=== PATIENT | male | born 1955 | race Caucasian/White ===

== ENCOUNTER 2017-04-12 16:56 | Inpatient (IN) | payer MEDICARE, MEDICAID ==
[~2017-04-12] VITALS: Ht 182.9 cm; Wt 83.8 kg
[~2017-04-12 16:56] MED LIST: DICL75 PO; MMW SSP; PENI500T PO; VENTAER INH; [UNRECOGNIZED DRUG - REMARK] PO
[2017-04-12 17:07] VITALS: BP 168/87; PULSE 81; RESP 13; TEMP 97.7; O2SAT 99
--- NOTE | 2017-04-12 18:08 | PD ---
HPI Chief Complaint: Alcohol/Drug Intoxication Time Seen by Provider: 17:50 Travel History International Travel<30 days: No Contact w/Intl Traveler<30days: No Traveled to known affect area: No History of Present Illness HPI 62-year-old male presents to the emergency department by E KIERA intoxicated after a fall that occurred today. Patient states that she was at home when EVAC just 'showed up'. When asked questions of the patient he just laughs and does not directly answer my questions. States he has drank a large quantity of alcohol today. PFSH Past Medical History Asthma: No Autoimmune Disease: No Heart Rhythm Problems: Yes Cardiovascular Problems: Yes (Per patient, heart palpitations) Chest Pain: No Congestive Heart Failure: No COPD: No Cerebrovascular Accident: No Diabetes: Yes Patient Takes Glucophage: No Diminished Hearing: No Endocrine: No Genitourinary: No Hypertension: Yes Immune Disorder: No Implanted Vascular Access Dvce: No Kidney Stones: Yes Musculoskeletal: No Neurologic: No Psychiatric: Yes (Inpatient, outpatient, diagnosis, and psychotropic medications) Respiratory: Yes (ASTHMA) Migraines: No Seizures: Yes (Per patient, due to psych medication Haldol (1985) 1 time) Sickle Cell Disease: No Sleep Apnea: No Thyroid Disease: No Ulcer: No Influenza Vaccination: No Past Surgical History Surgical History: Unable to Obtain Abdominal Surgery: No AICD: No Arteriovenous Shunt: No Cardiac Surgery: No Ear Surgery: No Endocrine Surgery: No Eye Surgery: No Genitourinary Surgery: No Gynecologic Surgery: No Insulin Pump: No Joint Replacement: No Neurologic Surgery: No Oral Surgery: No Pacemaker: No Thoracic Surgery: No Other Surgery: Yes (lympomas removed) Social History Alcohol Use: Yes (2- 8 BEERS/DAY) Tobacco Use: No Substance Use: Yes Allergies-Medications (Allergen,Severity, Reaction): Coded Allergies: haloperidol (Unverified Adverse Reaction, Severe, Swelling, 11/23/16) swelling of the tongue as reported by patient and un-wittnessed. Reported Meds & Prescriptions Reported Meds & Active Scripts Active Pen Vk (Penicillin V Potassium) 500 Mg Tab 500 Mg PO QID Ventolin Hfa (Albuterol Sulfate) 18 Gm Aero 2 Puff INH Q4-6H PRN * SHAKE WELL BEFORE USE * Magic Mouthwash-Diphenhy Formula (Lidocaine/Diphenhydr/Alum/Mg/Simeth) Ml 5-10 Ml SSP 5 TIMES A DAY PRN MAGIC MOUTHWASH CONTAINS 1/3 VISCOUS LIDOCAINE, 1/3 MAALOX, AND 1/[address] (Diclofenac Sod) 75 Mg Tab 75 Mg PO BID PRN Reported [Otc Sleeping Aid] 11 Tab PO HS Review of Systems Except as stated in HPI: all other systems reviewed are Neg Physical Exam Narrative GENERAL: Well-nourished and distress SKIN: Focused skin assessment warm/dry. HEAD: Normocephalic. Large, 6 cm hematoma with central puncta with copious bleeding EYES: Pupils equal and round. No scleral icterus. No injection or drainage. ENT: No nasal bleeding or discharge. Mucous membranes pink and moist. NECK: Trachea midline. No JVD. CARDIOVASCULAR: Regular rate and rhythm. No murmur appreciated. RESPIRATORY: No accessory muscle use. Clear to auscultation. Breath sounds equal bilaterally. GASTROINTESTINAL: Abdomen soft, non-tender, nondistended. Hepatic and splenic margins not palpable. Left flank with ecchymosis under several abrasions with a distinct pattern (shoe?) MUSCULOSKELETAL: No obvious deformities. No clubbing. No cyanosis. No edema. NEUROLOGICAL: Awake and alert. No obvious cranial nerve deficits. Motor grossly within normal limits. Normal speech. PSYCHIATRIC: Appropriate mood, unusual affect Data Data Last Documented VS Vital Signs Date Time Temp Pulse Resp B/P (MAP) Pulse Ox O2 Delivery O2 Flow Rate FiO2 04/12/17 21:00 84 14 122/79 (93) 99 Room Air 04/12/17 17:[address] Brain W/O Iv Contrast(Rout) (04/12/17 ) Ct Cerv Spine W/O Contrast (04/12/17 ) Complete Blood Count With Diff (04/12/17 19:18) Comprehensive Metabolic Panel (04/12/17 19:18) Alcohol (Ethanol) (04/12/17 19:18) Act Partial Throm Time (Ptt) (04/12/17 19:18) Prothrombin Time / Inr (Pt) (04/12/17 19:18) Ct Abd/Pel W Iv Contrast(Rout) (04/12/17 ) Consult Neurosurgery (04/12/17 ) (Hub Use Only)Inp Phy Cons/Ref (1/2/18 ) Iohexol 350 Inj (Omnipaque 350 Inj) (04/12/17 21:18) Admit Order (Ed Use Only) (04/12/17 21:53) Labs Laboratory Tests Test 04/12/17 20:25 White Blood Count 5.7 TH/MM3 Red Blood Count 5.02 MIL/MM3 Hemoglobin 16.5 GM/DL Hematocrit 47.9 % Mean Corpuscular Volume 95.4 FL Mean Corpuscular Hemoglobin 32.8 PG Mean Corpuscular Hemoglobin Concent 34.3 % Red Cell Distribution Width 12.4 % Platelet Count 226 TH/MM3 Mean Platelet Volume 7.7 FL Neutrophils (%) (Auto) 52.3 % Lymphocytes (%) (Auto) 35.7 % Monocytes (%) (Auto) 9.9 % Eosinophils (%) (Auto) 1.4 % Basophils (%) (Auto) 0.7 % Neutrophils # (Auto) 3.0 TH/MM3 Lymphocytes # (Auto) 2.0 TH/MM3 Monocytes # (Auto) 0.6 TH/MM3 Eosinophils # (Auto) 0.1 TH/MM3 Basophils # (Auto) 0.0 TH/MM3 CBC Comment DIFF FINAL Differential Comment Prothrombin Time 11.6 SEC Prothromb Time International Ratio 1.1 RATIO Activated Partial Thromboplast Time 26.3 SEC Blood Urea Nitrogen 7 MG/DL Creatinine 0.87 MG/DL Random Glucose 261 MG/DL Total Protein 7.7 GM/DL Albumin 4.1 GM/DL Calcium Level 9.3 MG/DL Alkaline Phosphatase 92 U/L Aspartate Amino Transf (AST/SGOT) 31 U/L Alanine Aminotransferase (ALT/SGPT) 34 U/L Total Bilirubin 0.4 MG/DL Sodium Level 138 MEQ/L Potassium Level 4.2 MEQ/L Chloride Level 101 MEQ/L Carbon Dioxide Level 29.3 MEQ/L Anion Gap 8 MEQ/L Estimat Glomerular Filtration Rate 89 ML/MIN Ethyl Alcohol Level 318 MG/DL MDM Medical Decision Making Medical Screen Exam Complete: Yes Emergency Medical Condition: Yes Differential Diagnosis Subarachnoid hemorrhage, laceration of the head, TBI, concussion, a call intoxication Narrative Course 62-year-old male presents to the emergency department by E VAC intoxicated after a fall that occurred today. Patient states that she was at home when EVAC just 'showed up'. When asked questions of the patient he just laughs and does not directly answer my questions. States he has drank a large quantity of alcohol today. Denies any other ingestions. Vital signs stable. Physical exam findings consistent with a large hematoma to the left posterior aspect of the head with a small laceration with copious bleeding. 3 denise placed which controlled the bleeding well. Pressure dressing applied. Laboratory Tests Test 04/12/17 20:25 White Blood Count 5.7 TH/MM3 Red Blood Count 5.02 MIL/MM3 Hemoglobin 16.5 GM/DL Hematocrit 47.9 % Mean Corpuscular Volume 95.4 FL Mean Corpuscular Hemoglobin 32.8 PG Mean Corpuscular Hemoglobin Concent 34.3 % Red Cell Distribution Width 12.4 % Platelet Count 226 TH/MM3 Mean Platelet Volume 7.7 FL Neutrophils (%) (Auto) 52.3 % Lymphocytes (%) (Auto) 35.7 % Monocytes (%) (Auto) 9.9 % Eosinophils (%) (Auto) 1.4 % Basophils (%) (Auto) 0.7 % Neutrophils # (Auto) 3.0 TH/MM3 Lymphocytes # (Auto) 2.0 TH/MM3 Monocytes # (Auto) 0.6 TH/MM3 Eosinophils # (Auto) 0.1 TH/MM3 Basophils # (Auto) 0.0 TH/MM3 CBC Comment DIFF FINAL Differential Comment Prothrombin Time 11.6 SEC Prothromb Time International Ratio 1.1 RATIO Activated Partial Thromboplast Time 26.3 SEC Blood Urea Nitrogen 7 MG/DL Creatinine 0.87 MG/DL Random Glucose 261 MG/DL Total Protein 7.7 GM/DL Albumin 4.1 GM/DL Calcium Level 9.3 MG/DL Alkaline Phosphatase 92 U/L Aspartate Amino Transf (AST/SGOT) 31 U/L Alanine Aminotransferase (ALT/SGPT) 34 U/L Total Bilirubin 0.4 MG/DL Sodium Level 138 MEQ/L Potassium Level 4.2 MEQ/L Chloride Level 101 MEQ/L Carbon Dioxide Level 29.3 MEQ/L Anion Gap 8 MEQ/L Estimat Glomerular Filtration Rate 89 ML/MIN Ethyl Alcohol Level 318 MG/DL A CT abdomen and pelvis was ordered as well as during the secondary survey, we found an ecchymosis developing with a distinct pattern on the left flank area. Abdominal exam remained unremarkable however. 2129 Upon reassessment, patient found to be alert and oriented 3. He still can 't tell me how EVAC arrived to his house but he does understand the instructions that have given him. I explained to him that he does have a bleed in his brain he requires admission. Patient does not have any complaints at this time. Please see Dr. Bender's note as well regarding this patient. Dr. Bender spoke with Dr. Vital and states he should be admitted to ICU. Thank you Dr. Downing for taking this patient. Procedures Procedure Narrative LACERATION LOCATION: Left posterior scalp LENGTH: 1 mm NUMBER OF STITCHES/DENISE: 3 denise REPAIR: The area of the laceration was prepped with Betadine and sterilely draped. The laceration was not infiltrated as this wound was copiously bleeding. The wound was closed using 3 denise. This was a - layer repair. A sterile dressing was applied. The patient was advised to keep the dressing clean and dry. Patient tolerated the procedure well. Diagnosis Primary Impression: Laceration of head Qualified Codes: S01.01XA - Laceration without foreign body of scalp, initial encounter Additional Impressions: Traumatic brain injury Qualified Codes: S06.9X0A - Unspecified intracranial injury without loss of consciousness, initial encounter Alcohol intoxication Qualified Codes: F10.920 - Alcohol use, unspecified with intoxication, uncomplicated Abdominal wall contusion Qualified Codes: S30.1XXA - Contusion of abdominal wall, initial encounter Admitting Information Admitting Physician Requests: Admit Scripts Metformin (Metformin) 500 Mg Tab 500 MG PO BIDPC for Blood Sugar Management, #60 TAB 0 Refills Prov: Nora Valdez MD 04/13/17 Chlordiazepoxide HCl (Chlordiazepoxide HCl) 25 Mg Capsule 25 MG PO BID for alcohol withdrawls, #10 MG Prov: Nora Valdez MD 04/13/17 Thiamine HCl (Gnp Vitamin B-1) 100 Mg Tab 100 MG PO DAILY for Nutritional Supplement, #30 TAB Prov: Nora Valdez MD 04/13/17 Folic Acid (Folic Acid) 1 Mg Tablet 1 MG PO DAILY for Nutritional Supplement, #30 MG Prov: Nora Valdez MD 04/13/17 Condition: Stable Margie Hernandez Apr 12, 2017 18:08
--- NOTE | 2017-04-12 18:32 | RADRPT ---
EXAM DATE/TIME: 04/12/2017 18:09 [facility] COMPARISON: No previous studies available for comparison. INDICATIONS : Trauma, patient fell. ETOH RADIATION DOSE: 37.33 CTDIvol (mGy) MEDICAL HISTORY : Seizures. Cardiovascular disease Hypertension.diabetic SURGICAL HISTORY : None. ENCOUNTER: Initial ACUITY: 1 day PAIN SCALE: 0/10 LOCATION: cranial TECHNIQUE: Multiple contiguous axial images were obtained of the head. Using automated exposure control and adj ustment of the mA and/or kV according to patient size, radiation dose was kept as low as reasonably a chievable to obtain optimal diagnostic quality images. DICOM format image data is available electro nically for review and comparison. FINDINGS: CEREBRUM: Minimal subarachnoid hemorrhage left parietal lobe. The ventricles are normal for age. No evidence o f midline shift, mass lesion or acute infarction. POSTERIOR FOSSA: The cerebellum and brainstem are intact. The 4th ventricle is midline. The cerebellopontine angle i s unremarkable. EXTRACRANIAL: The visualized portion of the orbits is intact. SKULL: The calvaria is intact. No evidence of skull fracture. Left parietal scalp hematoma. CONCLUSION: 1. Minimal subarachnoid hemorrhage left parietal lobe. 2. Left parietal scalp hematoma. Augie Go MD on April 12, 2017 at 18:28 Board Certified Radiologist. This report was verified electronically.
--- NOTE | 2017-04-12 18:38 | RADRPT ---
EXAM DATE/TIME: 04/12/2017 18:09 [facility] COMPARISON: No previous studies available for comparison. INDICATIONS : Trauma, patient fell. ETOH RADIATION DOSE: 21.60 CTDIvol (mGy) MEDICAL HISTORY : Seizures. Cardiovascular disease Hypertension.diabetic SURGICAL HISTORY : None. ENCOUNTER: Initial ACUITY: 1 day PAIN SCALE: 0/10 LOCATION: neck TECHNIQUE: Volumetric scanning of the cervical spine was performed. Multiplanar reconstructions in the sagittal, coronal and oblique axial planes were performed. Using automated exposure control and adjustment o f the mA and/or kV according to patient size, radiation dose was kept as low as reasonably achievable to obtain optimal diagnostic quality images. DICOM format image data is available electronically f or review and comparison. FINDINGS: VERTEBRAE: Normal vertebral body height. No fracture. Advanced multilevel degenerative changes. Prominent cystic change left pedicle left C3 could be nerves sheath tumor. This does appear to involve the adjacent n erve root. Similar findings are seen along the the left neural foramen at C5-1 small soft tissue mass . ALIGNMENT: No evidence of subluxation. C2-C3: The bony spinal canal is normal in size. No evidence of disc bulge or herniation. The neural forami na are bilaterally patent. C3-C4: The bony spinal canal is normal in size. No evidence of disc bulge or herniation. The neural forami na are bilaterally patent. C4-C5: Right-sided posterior disc osteophyte complex abuts the thecal sac. No canal stenosis. Mild neural fo raminal narrowing bilaterally. C5-C6: Posterior disc osteophyte complex abuts the thecal sac without canal stenosis. The neural foramina ar e bilaterally patent. C6-C7: Posterior disc osteophyte complex abuts thecal sac without canal stenosis. The neural foramina are b ilaterally patent. C7-T1: The bony spinal canal is normal in size. No evidence of disc bulge or herniation. The neural forami na are bilaterally patent. CONCLUSION: 1. No fracture or subluxation. 2. Advanced multilevel degenerative changes. 3. 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 Augie Go MD on April 12, 2017 at 18:30 Board Certified Radiologist. This report was verified electronically.
[2017-04-12 19:00] VITALS: BP 126/86; PULSE 79; RESP 14; O2SAT 99
--- NOTE | 2017-04-12 19:00 | PD ---
Physical Exam Narrative I, Dr. Bender, have reviewed the advance practice practitioner's documentation and am in agreement, met with the patient face to face, made the diagnosis, and the medical decision making was done by me. *My assessment and Findings: Alcohol intoxication vs. ICH vs. fracture 62yo M with alcohol intoxication. Pt is awake and answering questions but clinically very intoxicated. No focal neurologic deficits on exam. CT cspine showed no fracture. 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 CT brain showed minimal subarachnoid hemorrhage left parietal lobe. Left parietal scalp hematoma. Laceration repaired by my PA. Discussed with Dr. Vital who recommends to have ice guard inspector admit if I feel pt needs to go to ICU. Pt is intoxicated and follows commands but laughing and AAOx2. Pt has abrasions in left flank region that appears new so will add on CT a/p+ with labs. Pt to be admitted to ICU for neurochecks and repeat CT brain. Data Data Last Documented VS Vital Signs Date Time Temp Pulse Resp B/P (MAP) Pulse Ox O2 Delivery O2 Flow Rate FiO2 04/12/17 21:00 84 14 122/79 (93) 99 Room Air 04/12/17 17:[address] Brain W/O Iv Contrast(Rout) (04/12/17 ) Ct Cerv Spine W/O Contrast (04/12/17 ) Complete Blood Count With Diff (04/12/17 19:18) Comprehensive Metabolic Panel (04/12/17 19:18) Alcohol (Ethanol) (04/12/17 19:18) Act Partial Throm Time (Ptt) (04/12/17 19:18) Prothrombin Time / Inr (Pt) (04/12/17 19:18) Ct Abd/Pel W Iv Contrast(Rout) (04/12/17 ) Consult Neurosurgery (04/12/17 ) (Hub Use Only)Inp Phy Cons/Ref (04/12/17 ) Iohexol 350 Inj (Omnipaque 350 Inj) (04/12/17 21:18) Admit Order (Ed Use Only) (04/12/17 21:53) Labs Laboratory Tests Test 04/12/17 20:25 White Blood Count 5.7 TH/MM3 Red Blood Count 5.02 MIL/MM3 Hemoglobin 16.5 GM/DL Hematocrit 47.9 % Mean Corpuscular Volume 95.4 FL Mean Corpuscular Hemoglobin 32.8 PG Mean Corpuscular Hemoglobin Concent 34.3 % Red Cell Distribution Width 12.4 % Platelet Count 226 TH/MM3 Mean Platelet Volume 7.7 FL Neutrophils (%) (Auto) 52.3 % Lymphocytes (%) (Auto) 35.7 % Monocytes (%) (Auto) 9.9 % Eosinophils (%) (Auto) 1.4 % Basophils (%) (Auto) 0.7 % Neutrophils # (Auto) 3.0 TH/MM3 Lymphocytes # (Auto) 2.0 TH/MM3 Monocytes # (Auto) 0.6 TH/MM3 Eosinophils # (Auto) 0.1 TH/MM3 Basophils # (Auto) 0.0 TH/MM3 CBC Comment DIFF FINAL Differential Comment Prothrombin Time 11.6 SEC Prothromb Time International Ratio 1.1 RATIO Activated Partial Thromboplast Time 26.3 SEC Blood Urea Nitrogen 7 MG/DL Creatinine 0.87 MG/DL Random Glucose 261 MG/DL Total Protein 7.7 GM/DL Albumin 4.1 GM/DL Calcium Level 9.3 MG/DL Alkaline Phosphatase 92 U/L Aspartate Amino Transf (AST/SGOT) 31 U/L Alanine Aminotransferase (ALT/SGPT) 34 U/L Total Bilirubin 0.4 MG/DL Sodium Level 138 MEQ/L Potassium Level 4.2 MEQ/L Chloride Level 101 MEQ/L Carbon Dioxide Level 29.3 MEQ/L Anion Gap 8 MEQ/L Estimat Glomerular Filtration Rate 89 ML/MIN Ethyl Alcohol Level 318 MG/DL MDM Supervised Visit with KATIA: Yes Critical Care Narrative Aggregate critical care time was 35 minutes. Time to perform other separately billable procedures was not included in the critical care time. My time did not include minutes spent treating any other patients simultaneously or on activities that did not directly contribute to the patient's treatment. The services I provided to this patient were to treat and/or prevent clinically significant deterioration that could results in: cardiovascular collapse or . I provided critical care services requiring my management, as noted below: Chart data review, documentation time, medication orders and management, vital sign assessments/reviewing monitor data, ordering and reviewing lab tests, ordering and interpreting/reviewing x- rays and diagnostic studies, care of the patient and discussion of the patient with the admitting physicians. Diagnosis Primary Impression: Subarachnoid hemorrhage Admitting Information Admitting Physician Requests: Admit Scripts Metformin (Metformin) 500 Mg Tab 500 MG PO BIDPC for Blood Sugar Management, #60 TAB 0 Refills Prov: Nora Valdez MD 04/13/17 Chlordiazepoxide HCl (Chlordiazepoxide HCl) 25 Mg Capsule 25 MG PO BID for alcohol withdrawls, #10 MG Prov: Nora Valdez MD 04/13/17 Thiamine HCl (Gnp Vitamin B-1) 100 Mg Tab 100 MG PO DAILY for Nutritional Supplement, #30 TAB Prov: Nora Valdez MD 04/13/17 Folic Acid (Folic Acid) 1 Mg Tablet 1 MG PO DAILY for Nutritional Supplement, #30 MG Prov: Nora Valdez MD 04/13/17 Condition: Stable Brenda Bender DO Apr 12, 2017 19:00
[2017-04-12 20:42] LABS: BASOPHIL % 0.7 % (0.0-2.0); EOSINOPHIL # 0.1 TH/MM3 (0-0.4); EOSINOPHIL % 1.4 % (0.0-4.0); HEMATOCRIT 47.9 % (39.0-51.0); HEMOGLOBIN 16.5 GM/DL (13.0-17.0); LYMPH % 35.7 % (9.0-44.0); MEAN CELL VOLUME 95.4 FL (80.0-100.0); MEAN CORPUSCULAR HEMOGLOBIN 32.8 PG (27.0-34.0); MEAN CORPUSCULAR HGB CONC 34.3 % (32.0-36.0); MEAN PLATELET VOLUME 7.7 FL (7.0-11.0); MONO % 9.9 % (0.0-8.0); MONOCYTE # 0.6 TH/MM3 (0-0.9); NEUT % 52.3 % (16.0-70.0); PLATELET COUNT 226 TH/MM3 (150-450); RED BLOOD COUNT 5.02 MIL/MM3 (4.50-5.90); RED CELL DISTRIBUTION WIDTH 12.4 % (11.6-17.2); WHITE BLOOD COUNT 5.7 TH/MM3 (4.0-11.0)
[2017-04-12 20:55] LABS: ALBUMIN 4.1 GM/DL (3.4-5.0); AST (GOT) 31 U/L (15-37); BICARBONATE 29.3 MEQ/L (21.0-32.0); BLOOD UREA NITROGEN 7 MG/DL (7-18); CALCIUM 9.3 MG/DL (8.5-10.1); CHLORIDE 101 MEQ/L (98-107); CREATININE 0.87 MG/DL (0.60-1.30); GLOMERULAR FILTRATION RATE 89 ML/MIN (>89); GLUCOSE,RANDOM 261 MG/DL (74-106); SODIUM (NA) 138 MEQ/L (136-145)
[2017-04-12 20:56] LABS: ALT (GPT) 34 U/L (12-78)
[2017-04-12 21:00] VITALS: BP 122/79; PULSE 84; RESP 14; O2SAT 99
[2017-04-12 21:02] LABS: ALKALINE PHOSPHATASE 92 U/L (45-117); INTERNATIONAL NORMALIZED RATIO 1.1 RATIO; PROTHROMBIN TIME - PATIENT 11.6 SEC (9.8-11.6); TOTAL BILIRUBIN ADULT 0.4 MG/DL (0.2-1.0); TOTAL PROTEIN 7.7 GM/DL (6.4-8.2)
[2017-04-12] MEDS ORDERED: IOHEXOL 350 MG/ML 10 ML VIAL (for RAD DIAG) IVCONTRAST ONE (21:18)
--- NOTE | 2017-04-12 21:31 | RADRPT ---
EXAM DATE/TIME: 04/12/2017 21:14 [facility] COMPARISON: No previous studies available for comparison. INDICATIONS : Left side abdomen abrasions from fall. IV CONTRAST: 95 cc Omnipaque 350 (iohexol) IV ORAL CONTRAST: No oral contrast ingested. RADIATION DOSE: 7.20 CTDIvol (mGy) MEDICAL HISTORY : Cardiovascular disease. Renal calculi. SURGICAL HISTORY : None. ENCOUNTER: Initial ACUITY: 1 day PAIN SCALE: 7/10 LOCATION: Left abdomen. TECHNIQUE: Volumetric scanning of the abdomen and pelvis was performed. Using automated exposure control and ad justment of the mA and/or kV according to patient size, radiation dose was kept as low as reasonably achievable to obtain optimal diagnostic quality images. DICOM format image data is available electro nically for review and comparison. FINDINGS: LOWER LUNGS: The visualized lower lungs are clear. LIVER: Homogeneous density without lesion. There is no dilation of the biliary tree. No calcified gallston es. SPLEEN: Normal size without lesion. PANCREAS: Within normal limits. KIDNEYS: Normal in size and shape. There is no mass, stone or hydronephrosis. ADRENAL GLANDS: Within normal limits. VASCULAR: There is no aortic aneurysm. BOWEL/MESENTERY: The stomach, small bowel, and colon demonstrate no acute abnormality. There is no free intraperitone al air or fluid. ABDOMINAL WALL: Within normal limits. RETROPERITONEUM: There is no lymphadenopathy. BLADDER: No wall thickening. Mass at the base of the bladder appears to be related to hypertrophied prostate g land. REPRODUCTIVE: Within normal limits. INGUINAL: There is no lymphadenopathy or hernia. MUSCULOSKELETAL: Within normal limits for patient age. CONCLUSION: 1. No acute abdominal visceral injury. 2. Enlarged prostate gland protrudes into the base of the bladder versus less likely mass. Augie Go MD on April 12, 2017 at 21:26 Board Certified Radiologist. This report was verified electronically.
--- NOTE | 2017-04-12 22:24 | HHI.HP ---
HPI Service Critical Care Medicine Primary Care Physician Unknown Admission Diagnosis SAH, head trauma Diagnosis: Travel History International Travel<30 Days: No Contact w/Intl Traveler <30 Da: No Traveled to Known Affected Are: No History of Present Illness 62-year-old male with past medical history of hypertension, palpitations, diabetes. He states he has not been on his meds "for a while". He presents to [facility] emergency department due to altered mental status after a fall that occurred earlier in the day. [facility] transported him. He had a scalp laceration that has undergone staple repair in the emergency department. CT brain demonstrated a small subarachnoid hemorrhage high left parietal region. CT cspine was negative for acute injury, ?nerve sheath tumors per radiology report. CT abdomen and pelvis was negative or traumatic injury. Prostate was enlarged vs less likely bladder mass. He was intoxicated with alcohol level of 318. Neurosurgery was consulted and Dr. Vital recommended follow up CT brain in a.m. with admission to critical care medicine. Patient is alert, protecting his airway. Review of Systems Constitutional: DENIES: Fever Eyes: DENIES: Blurred vision, Diplopia Respiratory: DENIES: Cough, Sputum production, Shortness of breath Cardiovascular: DENIES: Chest pain Gastrointestinal: DENIES: Abdominal pain, Black stools, Vomiting Musculoskeletal: COMPLAINS OF: Back pain (chronic), DENIES: Joint pain Neurologic: COMPLAINS OF: Headache Psychiatric: DENIES: Agitation, Suicidal Ideation Past Family Social History Allergies: Coded Allergies: haloperidol (Unverified Adverse Reaction, Severe, Swelling, 11/23/16) swelling of the tongue as reported by patient and un-wittnessed. Past Medical History Palpitations Diabetes Hypertension Asthma Alcohol dependence Kidney stones Past Surgical History Lipomas removed from his right shoulder 2 Reported Medications None patient states he was previously on medications for diabetes and hypertension but is no longer taking any meds. Family History Father lived to age 98 and patient is not aware of any medical issues Mother lived to age 85 and patient is not aware of any medical issues. Social History Drinks 2-8 beers per day Patient states he doesn't smoke Denies illicit drug use to me. States he has not homeless, lives in an apartment. Physical Exam Vital Signs Vital Signs Date Time Temp Pulse Resp B/P (MAP) Pulse Ox O2 Delivery O2 Flow Rate FiO2 04/12/17 17:36 Room Air 04/12/17 17:07 97.7 81 13 168/87 (225) 99 Physical Exam GENERAL: Intoxicated male who is laying in bed very pleasant, laughing frequently while answering questions. SKIN: Warm and dry. There is an abrasion over left lower flank and to right of thoracolumbar spine. No midline tenderness step-off or deformity.. HEAD: Atraumatic. Normocephalic. EYES: Pupils equal and round. No scleral icterus. No injection or drainage. ENT: No nasal bleeding or discharge. Mucous membranes pink and moist. NECK: Trachea midline. No JVD. CARDIOVASCULAR: Regular rate and rhythm. No murmurs rubs or gallops. RESPIRATORY: No accessory muscle use. Clear to auscultation. Breath sounds equal bilaterally. On room air GASTROINTESTINAL: Abdomen soft, non-tender, nondistended. Bowel sounds present. MUSCULOSKELETAL: Extremities without clubbing, cyanosis, or edema. No obvious deformities. NEUROLOGICAL: Awake and alert. . Motor grossly within normal limits. Normal speech. Laboratory Laboratory Tests Test 04/12/17 20:25 White Blood Count 5.7 Red Blood Count 5.02 Hemoglobin 16.5 Hematocrit 47.9 Mean Corpuscular Volume 95.4 Mean Corpuscular Hemoglobin 32.8 Mean Corpuscular Hemoglobin Concent 34.3 Red Cell Distribution Width 12.4 Platelet Count 226 Mean Platelet Volume 7.7 Neutrophils (%) (Auto) 52.3 Lymphocytes (%) (Auto) 35.7 Monocytes (%) (Auto) 9.9 Eosinophils (%) (Auto) 1.4 Basophils (%) (Auto) 0.7 Neutrophils # (Auto) 3.0 Lymphocytes # (Auto) 2.0 Monocytes # (Auto) 0.6 Eosinophils # (Auto) 0.1 Basophils # (Auto) 0.0 CBC Comment DIFF FINAL Differential Comment Prothrombin Time 11.6 Prothromb Time International Ratio 1.1 Activated Partial Thromboplast Time 26.3 Blood Urea Nitrogen 7 Creatinine 0.87 Random Glucose 261 Total Protein 7.7 Albumin 4.1 Calcium Level 9.3 Alkaline Phosphatase 92 Aspartate Amino Transf (AST/SGOT) 31 Alanine Aminotransferase (ALT/SGPT) 34 Total Bilirubin 0.4 Sodium Level 138 Potassium Level 4.2 Chloride Level 101 Carbon Dioxide Level 29.3 Anion Gap 8 Estimat Glomerular Filtration Rate 89 Ethyl Alcohol Level 318 Result Diagram: 04/12/17202404/12/172024 Caprini VTE Risk Assessment Caprini VTE Risk Assessment: Mod/High Risk (score >= 2) VTE Pharm Contraindication: Intracranial lesions Caprini Risk Assessment Model Point Value = 1 Point Value = 2 Point Value = 3 Point Value = 5 Age 41-60 Minor surgery BMI > 25 kg/m2 Swollen legs Varicose veins or History of unexplained or recurrent spontaneous Oral contraceptives or hormone replacement Sepsis (< 1 month) Serious lung disease, including pneumonia (< 1 month) Abnormal pulmonary function Acute myocardial infarction Congestive heart failure (< 1 month) History of inflammatory bowel disease Medical patient at bed rest Age 61-74 Arthroscopic surgery Major open surgery (> 45 min) Laparoscopic surgery (> 45 min) Malignancy Confined to bed (> 72 hours) Immobilizing plaster cast Central venous access Age >= 75 History of VTE Family history of VTE Factor V Leiden Prothrombin [id number] Lupus anticoagulant Anticardiolipin antibodies Elevated serum homocysteine Heparin-induced thrombocytopenia Other congenital or acquired thrombophilia Stroke (< 1 month) Elective arthroplasty Hip, pelvis, or leg fracture Acute spinal cord injury (< 1 month) Prophylaxis Regimen Total Risk Factor Score Risk Level Prophylaxis Regimen 0-1 Low Early ambulation 2 Moderate Order ONE of the following: *Sequential Compression Device (SCD) *Heparin 5000 units SQ BID 3-4 Higher Order ONE of the following medications: *Heparin 5000 units SQ TID *Enoxaparin/Lovenox 40 mg SQ daily (WT < 150 kg, CrCl > 30 mL/min) *Enoxaparin/Lovenox 30 mg SQ daily (WT < 150 kg, CrCl > 10-29 mL/min) *Enoxaparin/Lovenox 30 mg SQ BID (WT < 150 kg, CrCl > 30 mL/min) AND/OR *Sequential Compression Device (SCD) 5 or more Highest Order ONE of the following medications: *Heparin 5000 units SQ TID (Preferred with Epidurals) *Enoxaparin/Lovenox 40 mg SQ daily (WT < 150 kg, CrCl > 30 mL/min) *Enoxaparin/Lovenox 30 mg SQ daily (WT < 150 kg, CrCl > 10-29 mL/min) *Enoxaparin/Lovenox 30 mg SQ BID (WT < 150 kg, CrCl > 30 mL/min) AND *Sequential Compression Device (SCD) Assessment and Plan Assessment and Plan NEURO: Acute alcohol intoxication - etOH 318 Traumatic left parietal subarachnoid hemorrhage Left parietal scalp hematoma Fall Scalp laceration status post staple repair 04/12/17 in the ED. Staple removal in 7 days Admit to [facility] with neurochecks q1hr. Repeat CT in a.m. Monitor for signs and symptoms of alcohol withdrawal Neurosurgery consulted, Dr. Vital RESP: History of asthma On room air Albuterol every 2 hours as needed CV: Hypertension Off meds GI: 2000-calorie ADA diet FEN/RENAL: History of kidney stone Normal creatinine. Monitor electrolytes and replace as indicated CT abdomen and pelvis with enlarged prostate protruding into the base of the bladder versus less likely mass. Outpatient urology follow-up ID: No leukocytosis or fever. Monitor for signs and symptoms of infection. HEME: Monitor CBC ENDO: Diabetes mellitus Monitor bedside glucose and give medium dose insulin sliding scale as indicated. PROPH: SCDs for DVT prophylaxis. Avoid pharmacologic DVT prophylaxis due to Traumatic subarachnoid hemorrhage. Could be started within [address] and neuro exam stable and ok with NSG. Famotidine for stress ulcer prophylaxis. ACCESS: Peripheral IV providing adequate access at this time. Level III H&P Tonia Downing MD Apr 12, 2017 22:24
[2017-04-12 23:00] VITALS: BP 118/77; PULSE 77; RESP 14; O2SAT 100
--- NOTE | 2017-04-12 23:59 | PD.CONS ---
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 No definite loss of consciousness reported. No seizure activity or emesis reported. Patient with EtOH level of 318. Review of Systems Constitutional: DENIES: Dizziness Eyes: DENIES: Blurred vision, Diplopia Ears, nose, mouth, throat: DENIES: Hearing loss, Vertigo Respiratory: DENIES: Shortness of breath Cardiovascular: DENIES: Chest pain, Palpitations Gastrointestinal: DENIES: Abdominal pain, Nausea Musculoskeletal: COMPLAINS OF: Muscle aches, DENIES: Joint pain Hematologic/lymphatic: DENIES: Bruising Neurologic: COMPLAINS OF: Headache, DENIES: Abnormal gait Psychiatric: COMPLAINS OF: Confusion, Mood changes Past Family Social History Allergies: Coded Allergies: haloperidol (Unverified Adverse Reaction, Severe, Swelling, 11/23/16) swelling of the tongue as reported by patient and un-wittnessed. Past Medical History Hypertension Diabetes Asthma Past Surgical History Lipoma shoulder removal Reported Medications Reported Meds & Active Scripts Active Pen Vk (Penicillin V Potassium) 500 Mg Tab 500 Mg PO QID Ventolin Hfa (Albuterol Sulfate) 18 Gm Aero 2 Puff INH Q4-6H PRN * SHAKE WELL BEFORE USE * Magic Mouthwash-Diphenhy Formula (Lidocaine/Diphenhydr/Alum/Mg/Simeth) Ml 5-10 Ml SSP 5 TIMES A DAY PRN MAGIC MOUTHWASH CONTAINS 1/3 VISCOUS LIDOCAINE, 1/3 MAALOX, AND 1/3 BENADRYL. Diclofenac Sodium 75 Mg Tab 75 Mg PO BID PRN Reported [Otc Sleeping Aid] 11 Tab PO HS Family History Negative cardiac disease, cancer, diabetes Social History Drinks approximately a sixpack of beer per day No cigarette use Physical Exam Vital Signs Vital Signs Date Time Temp Pulse Resp B/P (MAP) Pulse Ox O2 Delivery O2 Flow Rate FiO2 04/12/17 17:36 Room Air 04/12/17 17:07 97.7 81 13 168/87 (114) 99 Physical Exam GENERAL: This is a well-nourished, well-developed patient, laughing constantly , inappropriate behavior, anxious. SKIN: No abrasions, contusion, rash noted. Skin warm and dry. HEAD: Moderate scalp abrasion EYES: Sclerae are clear and nonicteric ENT: No facial edema or ecchymosis. No periorbital edema. No CSF otorrhea or rhinorrhea. No palpable facial fracture or deformity. NECK: Trachea midline. No cervical spine tenderness. CARDIOVASCULAR: Regular rate and rhythm without murmurs, gallops, or rubs. RESPIRATORY: Clear to auscultation. Breath sounds equal bilaterally. No wheezes , rales, or rhonchi. GASTROINTESTINAL: Abdomen soft, non-tender, nondistended. No hepato-splenomegaly , or palpable masses. No guarding. MUSCULOSKELETAL: Extremities without cyanosis, or edema. No joint tenderness, or edema noted. No calf tenderness. Dorsalis pedis pulses 2+ bilateral NEUROLOGICAL: Awake and alert Speech is clear He exhibits significant inappropriate behavior. Constantly laughing. Follow simple commands well Answers some simple questions appropriately Significant diminished judgment and insight Recent and remote memory are somewhat difficult to fully assessed given his inappropriate behavior but appears significantly diminished Appears somewhat anxious Pupils are equal and reactive to accommodation. Extra-ocular movements, visual perla to confrontation, facial sensorimotor, tongue, palate, sternocleidomastoid testing, hearing to finger rub testing, and bilateral shoulder shrug are all intact. Sensation is intact to light touch in all extremities Strength normal major flexion and extension groups all extremities Miguel's absent bilaterally No ankle clonus Plantar responses absent bilateral Fine motor movements intact upper extremities Laboratory Laboratory Tests Test 04/12/17 20:25 White Blood Count 5.7 Red Blood Count 5.02 Hemoglobin 16.5 Hematocrit 47.9 Mean Corpuscular Volume 95.4 Mean Corpuscular Hemoglobin 32.8 Mean Corpuscular Hemoglobin Concent 34.3 Red Cell Distribution Width 12.4 Platelet Count 226 Mean Platelet Volume 7.7 Neutrophils (%) (Auto) 52.3 Lymphocytes (%) (Auto) 35.7 Monocytes (%) (Auto) 9.9 Eosinophils (%) (Auto) 1.4 Basophils (%) (Auto) 0.7 Neutrophils # (Auto) 3.0 Lymphocytes # (Auto) 2.0 Monocytes # (Auto) 0.6 Eosinophils # (Auto) 0.1 Basophils # (Auto) 0.0 CBC Comment DIFF FINAL Differential Comment Prothrombin Time 11.6 Prothromb Time International Ratio 1.1 Activated Partial Thromboplast Time 26.3 Blood Urea Nitrogen 7 Creatinine 0.87 Random Glucose 261 Total Protein 7.7 Albumin 4.1 Calcium Level 9.3 Alkaline Phosphatase 92 Aspartate Amino Transf (AST/SGOT) 31 Alanine Aminotransferase (ALT/SGPT) 34 Total Bilirubin 0.4 Sodium Level 138 Potassium Level 4.2 Chloride Level 101 Carbon Dioxide Level 29.3 Anion Gap 8 Estimat Glomerular Filtration Rate 89 Ethyl Alcohol Level 318 Result Diagram: 04/12/17202404/12/1720[address] scan head, cervical spine, spine bone windows on abdomen and pelvis CT images reviewed by the undersigned Very mild left parietal convexity subarachnoid hemorrhage with overlying left scalp hematoma. No skull fracture pneumocephalus or hydrocephalus noted. Head CT 04/12/17 0000 Signed Impressions: Service Date/Time: Wednesday, April 12, 2017 18:09 - CONCLUSION: 1. Minimal subarachnoid hemorrhage left parietal lobe. 2. Left parietal scalp hematoma. Augie Go MD Cervical Spine CT 04/12/17 0000 Signed Impressions: Service Date/Time: Wednesday, April 12, 2017 18:09 - CONCLUSION: 1. No fracture or subluxation. 2. Advanced multilevel degenerative changes. 3. 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 Augie Go MD Abdomen/Pelvis CT 04/12/17 0000 Signed Impressions: Service Date/Time: Wednesday, April 12, 2017 21:14 - CONCLUSION: 1. No acute abdominal visceral injury. 2. Enlarged prostate gland protrudes into the base of the bladder versus less likely mass. Augie Go MD Assessment and Plan Assessment and Plan Impression: 1. Mild traumatic brain injury with subarachnoid hemorrhage left parietal convexity. 2. Left parietal scalp contusion Recommendations: Patient admitted to intensive surgical care unit for close vital signs and neuro checks. Non-chemical DVT prophylaxis No seizure prophylaxis necessary at this point Ulcer prophylaxis Follow-up CT scan head in the a.m. 04/13/2017 Marco Vital MD Apr 12, 2017 23:59
[2017-04-13] VITALS (8 sets, daily range): BP systolic 124–155; BP diastolic 78–87; PULSE 80–97; RESP 14–20; TEMP 98.1–98.3; O2SAT 95–100
[2017-04-13] MEDS ORDERED: SODIUM PHOSPHATE INJ 30 MMOL in SODIUM CHLOR 0.9% 250 ML INJ 240 ML IV PRN ×2
[2017-04-13] MEDS ORDERED: POTASSIUM PHOSPHATE MONOBASIC 500 MG TAB PO PRN
[2017-04-13] MEDS ORDERED: MAGNESIUM OXIDE 400 MG TAB PO PRN
[2017-04-13] MEDS ORDERED: ONDANSETRON HCL 4 MG/2 ML VIAL IV PUSH PRN
[2017-04-13] MEDS ORDERED: MISCELLANEOUS NURSING INFORMATION XX SCH
[2017-04-13] MEDS ORDERED: SENNOSIDES 8.6 MG TAB PO PRN
[2017-04-13] MEDS ORDERED: ACETAMINOPHEN/HYDROcodone 325 MG/5 MG TAB PO PRN
[2017-04-13] MEDS ORDERED: MAGNESIUM SULFATE INJ 4 GM in SODIUM CHLORIDE 0.9% INJ 92 ML IV PRN ×2
[2017-04-13] MEDS ORDERED: BISACODYL 10 MG SUPP RECTAL PRN
[2017-04-13] MEDS ORDERED: POTASSIUM CHLOR 40 MEQ PREMIX 100 ML IV PRN ×2
[2017-04-13] MEDS ORDERED: DEXTROSE 50% IN WATER 50 ML VIAL(D50) IV PUSH PRN
[2017-04-13] MEDS ORDERED: POTASSIUM PHOSPHATE MONOBASIC 500 MG TAB PO/TUBE PRN
[2017-04-13] MEDS ORDERED: POTASSIUM CHLORIDE 25 MEQ EFFERVESCENT TAB PO PRN
[2017-04-13] MEDS ORDERED: POTASSIUM PHOSPHATE INJ 30 MMOL in SODIUM CHLOR 0.9% 250 ML INJ 250 ML IV PRN ×2
[2017-04-13] MEDS ORDERED: MAGNESIUM SULFATE INJ 2 GM in SODIUM CHLORIDE 0.9% INJ 96 ML IV PRN ×2
[2017-04-13] MEDS ORDERED: MAGNESIUM HYDROXIDE SUSP 30 ML CUP PO PRN
[2017-04-13] MEDS ORDERED: POTASSIUM CHLOR 20 MEQ PREMIX 100 ML IV PRN ×2
[2017-04-13] MEDS ORDERED: LACTULOSE SYRUP 20 GM/30 ML CUP PO PRN
[2017-04-13] MEDS ORDERED: RESP: ALBUTEROL 2.5 MG/3 ML NEB (PRN) INH
[2017-04-13] MEDS ORDERED: GLUCAGON 1 MG/ML VIAL OTHER PRN
[2017-04-13] MEDS ORDERED: CHLORHEXIDINE GLUCONATE 2 % 1 PACK (2 CLOTHS) TOP PRN
[2017-04-13] MEDS ORDERED: SODIUM CHLORIDE 0.9% FLUSH 10 ML FLUSH IV FLUSH PRN
[2017-04-13] MEDS ORDERED: ACETAMINOPHEN 325 MG TAB PO PRN
--- NOTE | 2017-04-13 02:59 | RADRPT ---
EXAM DATE/TIME: 04/13/2017 02:49 [place] COMPARISON: CT BRAIN W/O CONTRAST, April 12, 2017, 18:09. INDICATIONS : Follow up subarachnoid hemorrhage. RADIATION DOSE: 35.21 CTDIvol (mGy) MEDICAL HISTORY : Seizures. Cardiovascular disease Hypertension.diabetic SURGICAL HISTORY : None. ENCOUNTER: Initial ACUITY: 2 days PAIN SCALE: 0/10 LOCATION: cranial TECHNIQUE: Multiple contiguous axial images were obtained of the head. Using automated exposure control and adj ustment of the mA and/or kV according to patient size, radiation dose was kept as low as reasonably a chievable to obtain optimal diagnostic quality images. DICOM format image data is available electro nically for review and comparison. FINDINGS: Subtle high attenuation change involving the sulcal pattern adjacent to the falx involving the pariet al lobe on the left. This is stable. No large volume hemorrhage observe. No new hemorrhage. No intrap arenchymal or intraventricular hemorrhage. No subdural hematoma. A left posterior soft tissue hematom a again seen. Ventricles are normal in size. Calvarium is intact. CONCLUSION: Subtle small volume subarachnoid hemorrhage is stable. No new hemorrhage observed. Caleb Casarez Jr., MD on April 13, 2017 at 2:55 Board Certified Radiologist. This report was verified electronically.
[2017-04-13] MEDS ORDERED: CHLORHEXIDINE GLUCONATE 2 % 1 PACK (2 CLOTHS) TOP SCH (04:00)
[2017-04-13 05:20] LABS: AUTOMATED NEUTROPHIL # 5.1 TH/MM3 (1.8-7.7); BASOPHIL % 0.6 % (0.0-2.0); EOSINOPHIL % 0.4 % (0.0-4.0); HEMATOCRIT 47.3 % (39.0-51.0); HEMOGLOBIN 16.5 GM/DL (13.0-17.0); LYMPHOCYTE # 1.5 TH/MM3 (1.0-4.8); MEAN CELL VOLUME 94.6 FL (80.0-100.0); MEAN CORPUSCULAR HGB CONC 34.9 % (32.0-36.0); MEAN PLATELET VOLUME 8.2 FL (7.0-11.0); MONO % 10.5 % (0.0-8.0); MONOCYTE # 0.8 TH/MM3 (0-0.9); NEUT % 68.5 % (16.0-70.0); PLATELET COUNT 233 TH/MM3 (150-450); RED CELL DISTRIBUTION WIDTH 12.6 % (11.6-17.2); WHITE BLOOD COUNT 7.4 TH/MM3 (4.0-11.0)
[2017-04-13 05:28] LABS: BICARBONATE 24.9 MEQ/L (21.0-32.0); CREATININE 0.79 MG/DL (0.60-1.30)
[2017-04-13] MEDS: INSULIN ASPART SUPPLEMENTAL SCALE SQ SCH ×2 (07:58→11:51)
--- NOTE | 2017-04-13 08:53 | HHI.CCPN ---
Subjective Remarks/Hospital Course 62-year-old male with past medical history of hypertension, palpitations, diabetes. He states he has not been on his meds "for a while". He presents to [facility] emergency department due to altered mental status after a fall that occurred earlier in the day. [facility] transported him. He had a scalp laceration that has undergone staple repair in the emergency department. CT brain demonstrated a small subarachnoid hemorrhage high left parietal region. CT cspine was negative for acute injury, ?nerve sheath tumors per radiology report. CT abdomen and pelvis was negative or traumatic injury. Prostate was enlarged vs less likely bladder mass. He was intoxicated with alcohol level of 318. Neurosurgery was consulted and Dr. Vital recommended follow up CT brain in a.m. with admission to critical care medicine. Patient is alert, protecting his airway. SUBJ 04/13/17: Lying in bed, nonfocal neuro exam. Tremulous. Drinks about 12 beers daily. CIWA protocol initiated along with Thiamine and folic acid replacement. repeat CT head stable Objective Vital Signs Date Time Temp Pulse Resp B/P (MAP) Pulse Ox O2 Delivery O2 Flow Rate FiO2 04/13/17 08:00 90 04/13/17 07:00 Room Air 04/13/17 06:00 20 140/79 (99) 98 04/13/17 04:00 98.1 Intake and Output 04/13/17 04/13/17 04/14/17 08:00 16:00 00:00 Intake Total 240 ml Output Total 400 ml Balance -160 ml Result Diagram: 04/13/17 0412 04/13/17 0412 Objective Remarks GENERAL: male who is laying in bed pleasant, but tremulous SKIN: Warm and dry. There is an abrasion HEAD: Atraumatic. Normocephalic. EYES: Pupils equal and round. No scleral icterus. No injection or drainage. ENT: No nasal bleeding or discharge. Mucous membranes pink and moist. NECK: Trachea midline. No JVD. CARDIOVASCULAR: Regular rate and rhythm. No murmurs rubs or gallops. RESPIRATORY: Clear to auscultation. Breath sounds equal bilaterally. GASTROINTESTINAL: Abdomen soft, non-tender, nondistended. Hepatic and splenic margins not palpable. MUSCULOSKELETAL: Extremities without clubbing, cyanosis, or edema. No obvious deformities. NEUROLOGICAL: Awake and alert. No obvious cranial nerve deficits. Motor grossly within normal limits. Tremulous from early alcohol withdrawal A/P Assessment and Plan NEURO: Mild with subarachnoid hemorrhage left parietal convexity. Left parietal scalp contusion Alcohol intoxication, now with early alcohol withdrawal - Repeat CT of the head stable hemorrhage - Initiate CIWA protocol, start scheduled Librium 25 mg by mouth every 8 hours - Supplement multivitamin thiamine and folic acid - Seizure precautions RESP: - Nasal cannula oxygen if needed - Aggressive pulmonary toilet - DuoNeb every 6 hours when necessary CV: - Normal saline IV fluids 84 ml per hour GI: ADA Diet, famotidine : - Monitor renal function closely. ID: - Monitor closely for infection HEME: - Monitor CBC, CMP ENDO: Type 2 diabetes with hyperglycemia - Continue sliding scale insulin (patient refusing SSI) PROPH: - Bilateral lower extremity SCDs. Avoid chemical DVT prophylaxis LINES: - Utilize peripheral IVs, central line if needed Level 2 Transfer to with Tele. [facility] tyo assume care 04/14/17 Rigo Pierce MD Apr 13, 2017 08:53
--- NOTE | 2017-04-13 08:56 | HHI.NSPN ---
(Ho Jarquin) History Interval History 04/12: 62-year-old male presented by a VAC to the ambulance today after a fall earlier in the day. No definite loss of consciousness reported. No seizure activity or emesis reported. Patient with EtOH level of 318. 04/13: (Ho Jarquin) Exam Results 04/11/17 04/11/17 04/12/17 04/12/17 04/13/17 04/13/17 05:59 17:59 05:59 17:59 05:59 17:59 Intake Total 240 ml Output Total 400 ml Balance -160 ml Intake Oral 240 ml Output Urine Total 400 ml # Bowel Movements 0 Vital Signs Date Time Temp Pulse Resp B/P (MAP) Pulse Ox O2 Delivery O2 Flow Rate FiO2 04/13/17 08:00 90 04/13/17 07:00 Room Air 04/13/17 06:00 Room Air 04/13/17 06:00 97 20 140/79 (99) 98 04/13/17 05:00 85 20 142/82 (102) 97 04/13/17 04:00 98.1 87 20 139/86 (103) 98 04/13/17 04:00 Room Air 04/13/17 03:05 04/13/17 01:00 80 14 124/78 (93) 100 Room Air 04/13/17 00:21 96 04/12/17 23:00 77 14 118/77 (91) 100 Room Air 04/12/17 21:00 84 14 122/79 (93) 99 Room Air 04/12/17 19:00 79 14 126/86 (99) 99 Room Air 04/12/17 17:36 Room Air 04/12/17 17:07 97.7 81 13 168/87 (114) 99 (Ho Jarquin) Physical Examination GENERAL: HEENT: MUSCULOSKELETAL: NEUROLOGICAL: (Ho Jarquin) Lab, Micro, Other Results This practitioner independently reviewed the CT brain images from this morning and compared them with those from . The left parietal SAH appears stable w/o any new acute findings. Recent Impressions Head CT 04/13/17 0400 Signed Impressions: Service Date/Time: Thursday, April 13, 2017 02:49 - CONCLUSION: Subtle small volume subarachnoid hemorrhage is stable. No new hemorrhage observed. Caleb Casarez Jr., MD Head CT 04/12/17 0000 Signed Impressions: Service Date/Time: Wednesday, April 12, 2017 18:09 - CONCLUSION: 1. Minimal subarachnoid hemorrhage left parietal lobe. 2. Left parietal scalp hematoma. Augie Go MD Cervical Spine CT 04/12/17 0000 Signed Impressions: Service Date/Time: Wednesday, April 12, 2017 18:09 - CONCLUSION: 1. No fracture or subluxation. 2. Advanced multilevel degenerative changes. 3. 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 Augie Go MD Abdomen/Pelvis CT 04/12/17 0000 Signed Impressions: Service Date/Time: Wednesday, April 12, 2017 21:14 - CONCLUSION: 1. No acute abdominal visceral injury. 2. Enlarged prostate gland protrudes into the base of the bladder versus less likely mass. Augie Go MD Laboratory Tests Test 04/12/17 20:25 04/13/17 03:00 04/13/17 04:12 White Blood Count 5.7 TH/MM3 7.4 TH/MM3 Red Blood Count 5.02 MIL/MM3 5.00 MIL/MM3 Hemoglobin 16.5 GM/DL 16.5 GM/DL Hematocrit 47.9 % 47.3 % Mean Corpuscular Volume 95.4 FL 94.6 FL Mean Corpuscular Hemoglobin 32.8 PG 33.0 PG Mean Corpuscular Hemoglobin Concent 34.3 % 34.9 % Red Cell Distribution Width 12.4 % 12.6 % Platelet Count 226 TH/MM3 233 TH/MM3 Mean Platelet Volume 7.7 FL 8.2 FL Neutrophils (%) (Auto) 52.3 % 68.5 % Lymphocytes (%) (Auto) 35.7 % 20.0 % Monocytes (%) (Auto) 9.9 % 10.5 % Eosinophils (%) (Auto) 1.4 % 0.4 % Basophils (%) (Auto) 0.7 % 0.6 % Neutrophils # (Auto) 3.0 TH/MM3 5.1 TH/MM3 Lymphocytes # (Auto) 2.0 TH/MM3 1.5 TH/MM3 Monocytes # (Auto) 0.6 TH/MM3 0.8 TH/MM3 Eosinophils # (Auto) 0.1 TH/MM3 0.0 TH/MM3 Basophils # (Auto) 0.0 TH/MM3 0.0 TH/MM3 CBC Comment DIFF FINAL DIFF FINAL Differential Comment Prothrombin Time 11.6 SEC Prothromb Time International Ratio 1.1 RATIO Activated Partial Thromboplast Time 26.3 SEC Blood Urea Nitrogen 7 MG/DL 9 MG/DL Creatinine 0.87 MG/DL 0.79 MG/DL Random Glucose 261 MG/DL 225 MG/DL Total Protein 7.7 GM/DL Albumin 4.1 GM/DL Calcium Level 9.3 MG/DL 9.0 MG/DL Alkaline Phosphatase 92 U/L Aspartate Amino Transf (AST/SGOT) 31 U/L Alanine Aminotransferase (ALT/SGPT) 34 U/L Total Bilirubin 0.4 MG/DL Sodium Level 138 MEQ/L 139 MEQ/L Potassium Level 4.2 MEQ/L 3.9 MEQ/L Chloride Level 101 MEQ/L 102 MEQ/L Carbon Dioxide Level 29.3 MEQ/L 24.9 MEQ/L Anion Gap 8 MEQ/L 12 MEQ/L Estimat Glomerular Filtration Rate 89 ML/MIN 100 ML/MIN Ethyl Alcohol Level 318 MG/DL Nasal Screen MRSA (PCR) MRSA NOT DETECTED (Ho Jarquin) Medical Decision Making Impression and Plan Impression: 1. Mild traumatic brain injury with subarachnoid hemorrhage left parietal convexity. 2. Left parietal scalp contusion Reviewed labs for today. CT brain this morning w/stable left parietal SAH, no new acute findings. Plan: Primary management per Training Facilitator. Frequent neuro checks. Stat CT brain for any decline in neuro status. Mechanical DVT prophylaxis. Hold pharmacologic DVT prophylaxis. Stress ulcer prophylaxis. Seizure prophylaxis not required at this time. Mobilise patient w/assistance. Diet as tolerated. (Ho Jarquin) Attending Statement The exam, history, and the medical decision-making described in the above note were completed with the assistance of the mid-level provider. I reviewed and agree with the findings presented. I attest that I had a [id number] encounter with the patient on the same day, and personally performed and documented my assessment and findings in the medical record. The patient's CT scan of the head images have been reviewed by the undersigned today. There is very minimal residual subarachnoid hemorrhage without mass effect. Discussed with nursing staff The patient would like to discharge home today. He is to avoid NSAIDs, aspirin, alcohol for the next 4 weeks. He will notify our office if any significant changes occur or return to the emergency room. He is otherwise clear for discharge home from neurosurgical standpoint (Marco Vital MD) Ho Jarquin Apr 13, 2017 08:56 Marco Vital MD Apr 13, 2017 13:17
[2017-04-13] MEDS ORDERED: LORazepam 2 MG TAB PO PRN (09:00)
[2017-04-13] MEDS ORDERED: LORazepam 1 MG TAB PO PRN (09:00)
[2017-04-13] MEDS ORDERED: FAMOTIDINE 20 MG TAB PO SCH (09:00)
[2017-04-13] MEDS ORDERED: DOCUSATE SODIUM 50 MG/SENNA 8.6 MG TAB PO SCH (09:00)
[2017-04-13] MEDS ORDERED: MULTIVITAMINS/MINERALS THERAPEUTIC TAB PO SCH (09:00)
[2017-04-13] MEDS ORDERED: LORazepam 2 MG/ML VIAL IV PUSH PRN ×4 (09:00)
[2017-04-13] MEDS ORDERED: FOLIC ACID 1 MG TAB PO SCH (09:00)
[2017-04-13] MEDS ORDERED: THIAMINE HCL 100 MG TAB PO SCH (09:00)
[2017-04-13] MEDS ORDERED: chlordiazePOXIDE 25 MG CAP PO SCH (09:00)
[2017-04-13] MEDS ORDERED: FLUMAZENIL 0.5 MG/5 ML VIAL IV PUSH PRN (09:00)
[2017-04-13] MEDS ORDERED: FAMOTIDINE 20 MG/2 ML VIAL IV PUSH SCH (09:00)
[2017-04-13] MEDS ORDERED: SODIUM CHLORIDE 0.9% FLUSH 10 ML FLUSH IV FLUSH SCH (09:00)
[2017-04-13] MEDS ORDERED: RESP: ALBUTEROL 2.5 MG/3 ML NEB (PRN) NEB (09:30)
--- NOTE | 2017-04-13 10:02 | HHI.PR ---
Subjective Remarks The patient is likely old without any problems says he feels much better and he wants to go home. He is refusing insulin says he is taking metformin at home and we will restart metformin months ago. Denies any headaches, chest. Eating well no nausea or vomiting no diarrhea or constipation pain. Doesn't have any tremors. Objective Vitals Vital Signs Date Time Temp Pulse Resp B/P (MAP) Pulse Ox O2 Delivery O2 Flow Rate FiO2 04/13/17 09:00 98.2 90 18 151/81 (104) 95 04/13/17 08:00 90 04/13/17 07:00 Room Air 04/13/17 06:00 Room Air 04/13/17 06:00 97 20 140/79 (99) 98 04/13/17 05:00 85 20 142/82 (102) 97 04/13/17 04:00 98.1 87 20 139/86 (103) 98 04/13/17 04:00 Room Air 04/13/17 03:05 04/13/17 01:00 80 14 124/78 (93) 100 Room Air 04/13/17 00:21 96 04/12/17 23:00 77 14 118/77 (91) 100 Room Air 04/12/17 21:00 84 14 122/79 (93) 99 Room Air 04/12/17 19:00 79 14 126/86 (99) 99 Room Air 04/12/17 17:36 Room Air 04/12/17 17:07 97.7 81 13 168/87 (114) 99 I/O 04/12/17 04/12/17 04/12/17 04/13/17 04/13/17 04/13/17 07:00 15:00 23:00 07:00 15:00 23:00 Intake Total 240 ml Output Total 400 ml Balance -160 ml Intake Oral 240 ml Output Urine Total 400 ml # Bowel Movements 0 Result Diagram: 04/13/17 0412 04/13/172 Imaging Last Impressions Head CT 04/13/17 0400 Signed Impressions: Service Date/Time: Thursday, April 13, 2017 02:49 - CONCLUSION: Subtle small volume subarachnoid hemorrhage is stable. No new hemorrhage observed. Caleb Casarez Jr., MD Cervical Spine CT 04/12/17 0000 Signed Impressions: Service Date/Time: Wednesday, April 12, 2017 18:09 - CONCLUSION: 1. No fracture or subluxation. 2. Advanced multilevel degenerative changes. 3. 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 Augie Go MD Abdomen/Pelvis CT 04/12/17 0000 Signed Impressions: Service Date/Time: Wednesday, April 12, 2017 21:14 - CONCLUSION: 1. No acute abdominal visceral injury. 2. Enlarged prostate gland protrudes into the base of the bladder versus less likely mass. Augie Go MD Objective Remarks GENERAL: male pleasant, appears in not acute distress. SKIN: Warm and dry. There is an abrasion over left lower flank and to right of thoracolumbar spine. CARDIOVASCULAR: Regular rate and rhythm. No murmurs rubs or gallops. RESPIRATORY: No accessory muscle use. Clear to auscultation. Breath sounds equal bilaterally. On room air GASTROINTESTINAL: Abdomen soft, non-tender, nondistended. Bowel sounds present. MUSCULOSKELETAL: Extremities without clubbing, cyanosis, or edema. No obvious deformities. NEUROLOGICAL: Awake and alert. Motor grossly within normal limits. Normal speech. Ambulating in the room A/P Assessment and Plan NEURO: Acute alcohol intoxication - EtOH 318 on admission Traumatic left parietal subarachnoid hemorrhage Left parietal scalp hematoma Fall Scalp laceration status post staple repair 04/12/17 in the ED. Staple removal in 7 days Admit to [facility] with neurochecks q1hr. Repeat CT in a.m. is stable. Monitor for signs and symptoms of alcohol withdrawal Neurosurgery consulted, Dr. Vital RESP: History of asthma On room air Albuterol every 2 hours as needed CV: Hypertension Off meds GI: 2000-calorie ADA diet FEN/RENAL: History of kidney stone Normal creatinine. Monitor electrolytes and replace as indicated CT abdomen and pelvis with enlarged prostate protruding into the base of the bladder versus less likely mass. Outpatient urology follow-up ID: No leukocytosis or fever. Monitor for signs and symptoms of infection. HEME: Monitor CBC ENDO: Diabetes mellitus Monitor bedside glucose and give medium dose insulin sliding scale as indicated. DVT prophylaxis SCD. Avoid pharmacologic DVT prophylaxis due to Traumatic subarachnoid hemorrhage. Could be started within [address] and neuro exam stable and ok with NSG. GI ppx: Famotidine for stress ulcer prophylaxis. Discharge Planning Discharge home in stable condition to follow-up as outpatient with consultants and with PCP. To have denise removed in 7 days. Diet healthy heart diet and diabetic diet. Activity ad dora. as tolerated Medications per medications reconciliations Nora Valdez MD Apr 13, 2017 10:02
[2017-04-13] MEDS ORDERED: FOLI1TAB6 PO (12:15)
[2017-04-13] MEDS ORDERED: THIA100 PO (12:15)
--- NOTE | 2017-04-13 12:15 | HHI.DCPOC ---
Discharge Care Plan Goals to Promote Your Health * To prevent worsening of your condition and complications * To maintain your health at the optimal level Directions to Meet Your Goals Take your medications as prescribed Follow your dietary instruction Follow activity as directed Keep your appointments as scheduled Take your immunizations and boosters as scheduled If your symptoms worsen call your PCP, if no PCP go to Urgent Care Center or Emergency Room Smoking is Dangerous to Your Health. Avoid second hand smoke Call the 24-hour hour crisis hotline for domestic abuse at Nora Valdez MD Apr 13, 2017 12:15
[2017-04-13] MEDS ORDERED: CHLO25CA9 PO (12:18)
[2017-04-13] MEDS ORDERED: METF500T PO (12:20)
[2017-04-14] MEDS ORDERED: SODIUM CHLOR 0.9% 1000 ML INJ 1,000 ML IV SCH
== END 2017-04-13 15:14 | disposition home or self-care (01) | DRG 86 ==
LOC: NEPC 16:56 → NEDA 21:56 → N03A 04-13 02:55 → N05A 04-13 08:54
PROVIDERS: ADMIT Emergency Medicine; ATTEND Emergency Medicine
PROC: 0HQ0XZZ Repair Scalp Skin, External Approach (ICD-10-PCS; principal; 2017-04-12)
DX: S06.6X0A Traumatic subarachnoid hemorrhage without loss of consciousness, initial encounter (principal); F10.239 Alcohol dependence with withdrawal, unspecified; E11.65 Type 2 diabetes mellitus with hyperglycemia; I10 Essential (primary) hypertension; S01.01XA Laceration without foreign body of scalp, initial encounter; S30.1XXA Contusion of abdominal wall, initial encounter; R00.2 Palpitations; Y90.8 Blood alcohol level of 240 mg/100 ml or more; N32.9 Bladder disorder, unspecified; W19.XXXA Unspecified fall, initial encounter; Z91.14 Patient's other noncompliance with medication regimen
CPT/HCPCS: 12001; 70450; 72125; 74177; 80048; 80053; 80307; 82948; 85025; 85610; 85730; 87641; Q9967

== ENCOUNTER 2017-05-31 08:26 | Observation (INO) | payer MEDICARE, MEDICAID ==
[~2017-05-31] VITALS: Ht 182.9 cm; Wt 90.0 kg
[2017-05-31] VITALS (7 sets, daily range): BP systolic 123–168; BP diastolic 73–107; PULSE 74–92; RESP 16–20; TEMP 98.4–98.7; O2SAT 95–98
[~2017-05-31 08:26] MED LIST changes: +CHLO25CA9 PO; +FOLI1TAB6 PO; +METF500T PO; +THIA100 PO
[2017-05-31] MEDS ORDERED: SODIUM CHLOR 0.9% 1000 ML INJ 1,000 ML IV ONE (09:30)
[2017-05-31 09:52] LABS: BASOPHIL % 0.7 % (0.0-2.0); EOSINOPHIL % 0.1 % (0.0-4.0); HEMATOCRIT 44.2 % (39.0-51.0); HEMOGLOBIN 15.5 GM/DL (13.0-17.0); LYMPH % 17.5 % (9.0-44.0); LYMPHOCYTE # 0.7 TH/MM3 (1.0-4.8); MEAN CELL VOLUME 94.9 FL (80.0-100.0); MEAN CORPUSCULAR HEMOGLOBIN 33.4 PG (27.0-34.0); MEAN CORPUSCULAR HGB CONC 35.1 % (32.0-36.0); MEAN PLATELET VOLUME 8.5 FL (7.0-11.0); MONO % 10.2 % (0.0-8.0); MONOCYTE # 0.4 TH/MM3 (0-0.9); NEUT % 71.5 % (16.0-70.0); PLATELET COUNT 128 TH/MM3 (150-450); RED BLOOD COUNT 4.66 MIL/MM3 (4.50-5.90); RED CELL DISTRIBUTION WIDTH 13.8 % (11.6-17.2); WHITE BLOOD COUNT 4.2 TH/MM3 (4.0-11.0)
[2017-05-31 10:08] LABS: ALBUMIN 4.4 GM/DL (3.4-5.0); AST (GOT) 100 U/L (15-37); BICARBONATE 18.8 MEQ/L (21.0-32.0); BLOOD UREA NITROGEN 11 MG/DL (7-18); CALCIUM 9.1 MG/DL (8.5-10.1); CHLORIDE 97 MEQ/L (98-107); CREATININE 0.87 MG/DL (0.60-1.30); GLOMERULAR FILTRATION RATE 89 ML/MIN (>89); GLUCOSE,RANDOM 274 MG/DL (74-106); SODIUM (NA) 133 MEQ/L (136-145)
[2017-05-31 10:09] LABS: ALT (GPT) 74 U/L (12-78)
[2017-05-31 10:12] LABS: ALKALINE PHOSPHATASE 105 U/L (45-117); TOTAL BILIRUBIN ADULT 1.6 MG/DL (0.2-1.0); TOTAL PROTEIN 7.8 GM/DL (6.4-8.2)
[2017-05-31] MEDS ORDERED: LORazepam 1 MG TAB PO ONE (10:15)
[2017-05-31] MEDS ORDERED: LORazepam 2 MG TAB PO PRN (10:45)
[2017-05-31] MEDS ORDERED: LORazepam 2 MG/ML VIAL IV PUSH PRN ×4 (10:45)
[2017-05-31] MEDS ORDERED: LORazepam 1 MG TAB PO PRN (10:45)
[2017-05-31] MEDS ORDERED: FLUMAZENIL 0.5 MG/5 ML VIAL IV PUSH PRN (10:45)
--- NOTE | 2017-05-31 11:05 | PD ---
HPI Chief Complaint: tremor Time Seen by Provider: 09:05 Travel History International Travel<30 days: No Contact w/Intl Traveler<30days: No Traveled to known affect area: No History of Present Illness HPI 62 y/o male presents with feeling tremors all over. He states that he is taking Librium at home but it is not helping. He states he tried to drink alcohol today but this did not help either. He states that he drinks about 4-8 beers every day and his last alcohol other than a small amount this morning was yesterday. He states that he is having no other specific complaints other than he has a ghulam on his right arm. He denies any specific trauma with this. Patient is a poor historian but history is significantly limited. [facility] Past Medical History Asthma: No Autoimmune Disease: No Heart Rhythm Problems: Yes (PER PATIENT) Cardiovascular Problems: Yes (Per patient, heart palpitations) Chest Pain: No Congestive Heart Failure: No COPD: No Cerebrovascular Accident: No Diabetes: Yes Patient Takes Glucophage: No Diminished Hearing: No Endocrine: No Genitourinary: No Hypertension: Yes Immune Disorder: No Implanted Vascular Access Dvce: No Kidney Stones: Yes Musculoskeletal: No Neurologic: No Psychiatric: Yes (Inpatient, outpatient, diagnosis, and psychotropic medications) Respiratory: Yes (ASTHMA) Migraines: No Seizures: Yes (Per patient, due to psych medication Haldol (1985) 1 time) Sickle Cell Disease: No Sleep Apnea: No Thyroid Disease: No Ulcer: No Past Surgical History Abdominal Surgery: No AICD: No Arteriovenous Shunt: No Cardiac Surgery: No Ear Surgery: No Endocrine Surgery: No Eye Surgery: No Genitourinary Surgery: No Gynecologic Surgery: No Insulin Pump: No Joint Replacement: No Neurologic Surgery: No Oral Surgery: No Pacemaker: No Thoracic Surgery: No Other Surgery: Yes (lympomas removed RIGHT SHOULDER) Social History Alcohol Use: Yes (4-8 BEERS/DAY) Tobacco Use: No Substance Use: Yes Allergies-Medications (Allergen,Severity, Reaction): Coded Allergies: haloperidol (Unverified Adverse Reaction, Severe, Swelling, 05/31/17) swelling of the tongue as reported by patient and un-wittnessed. Reported Meds & Prescriptions Reported Meds & Active Scripts Active Chlordiazepoxide HCl 25 Mg Capsule 25 Mg PO BID Review of Systems Except as stated in HPI: all other systems reviewed are Neg Physical Exam Exam Limitations: Poor Historian Narrative GENERAL: 62-year-old male with resting tremor SKIN: Focused skin assessment warm/dry. HEAD: Atraumatic. Normocephalic. EYES: Pupils equal and round. No scleral icterus. No injection or drainage. ENT: No nasal bleeding or discharge. Mucous membranes pink and moist. NECK: Trachea midline. No JVD. CARDIOVASCULAR: Regular rate and rhythm. RESPIRATORY: No accessory muscle use. Clear to auscultation. Breath sounds equal bilaterally. GASTROINTESTINAL: Abdomen soft, non-tender, nondistended. MUSCULOSKELETAL: No obvious deformities. No clubbing. No cyanosis. No edema. Small abrasion to right arm noted without cellulitic component or abscess NEUROLOGICAL: Awake and alert. No obvious cranial nerve deficits. Motor grossly within normal limits. Normal speech. Data Data Last Documented VS Vital Signs Date Time Temp Pulse Resp B/P (MAP) Pulse Ox O2 Delivery O2 Flow Rate FiO2 05/31/17 14:08 85 18 140/80 (100) 96 05/31/17 08:42 98.4 Room Air Orders Orders Complete Blood Count With Diff (05/31/17 09:05) Comprehensive Metabolic Panel (05/31/17 09:05) Iv Access Insert/Monitor (05/31/17 09:05) Drug Screen, Random Urine (05/31/17 09:05) Alcohol (Ethanol) (05/31/17 09:05) Sodium Chlor 0.9% 1000 Ml Inj (Ns 1000 M (05/31/17 09:30) Lorazepam (Ativan) (05/31/17 10:15) Psych Screen (05/31/17 10:14) Alcohol Withdrawal Asmt-Ciwa ONCE (05/31/17 10:31) Flumazenil Inj (Romazicon Inj) (05/31/17 10:45) Lorazepam (Ativan) (05/31/17 10:45) Lorazepam Inj (Ativan Inj) (05/31/17 10:45) Lorazepam (Ativan) (05/31/17 10:45) Lorazepam Inj (Ativan Inj) (05/31/17 10:45) Lorazepam Inj (Ativan Inj) (05/31/17 10:45) Lorazepam Inj (Ativan Inj) (05/31/17 10:45) Admit Order (Ed Use Only) (05/31/17 15:54) Labs Laboratory Tests Test 05/31/17 09:09 05/31/17 09:43 White Blood Count 4.2 TH/MM3 Red Blood Count 4.66 MIL/MM3 Hemoglobin 15.5 GM/DL Hematocrit 44.2 % Mean Corpuscular Volume 94.9 FL Mean Corpuscular Hemoglobin 33.4 PG Mean Corpuscular Hemoglobin Concent 35.1 % Red Cell Distribution Width 13.8 % Platelet Count 128 TH/MM3 Mean Platelet Volume 8.5 FL Neutrophils (%) (Auto) 71.5 % Lymphocytes (%) (Auto) 17.5 % Monocytes (%) (Auto) 10.2 % Eosinophils (%) (Auto) 0.1 % Basophils (%) (Auto) 0.7 % Neutrophils # (Auto) 3.0 TH/MM3 Lymphocytes # (Auto) 0.7 TH/MM3 Monocytes # (Auto) 0.4 TH/MM3 Eosinophils # (Auto) 0.0 TH/MM3 Basophils # (Auto) 0.0 TH/MM3 CBC Comment DIFF FINAL Differential Comment Blood Urea Nitrogen 11 MG/DL Creatinine 0.87 MG/DL Random Glucose 274 MG/DL Total Protein 7.8 GM/DL Albumin 4.4 GM/DL Calcium Level 9.1 MG/DL Alkaline Phosphatase 105 U/L Aspartate Amino Transf (AST/SGOT) 100 U/L Alanine Aminotransferase (ALT/SGPT) 74 U/L Total Bilirubin 1.6 MG/DL Sodium Level 133 MEQ/L Potassium Level 3.7 MEQ/L Chloride Level 97 MEQ/L Carbon Dioxide Level 18.8 MEQ/L Anion Gap 17 MEQ/L Estimat Glomerular Filtration Rate 89 ML/MIN Ethyl Alcohol Level 19 MG/DL Urine Opiates Screen NEG Urine Barbiturates Screen NEG Urine Amphetamines Screen NEG Urine Benzodiazepines Screen POS Urine Cocaine Screen NEG Urine Cannabinoids Screen NEG MDM Medical Decision Making Medical Screen Exam Complete: Yes Emergency Medical Condition: Yes Medical Record Reviewed: Yes (pmh confirmed) Interpretation(s) CBC & BMP Diagram 05/31/17 09:09 Total Protein 7.8, Albumin 4.4, Calcium Level 9.1, Alkaline Phosphatase 105, Aspartate Amino Transf (AST/SGOT) 100 H, Alanine Aminotransferase (ALT/SGPT) 74 , Total Bilirubin 1.6 H Differential Diagnosis Alcohol withdrawal, electrolyte abnormality, depression Narrative Course We will check blood work and dose with Ativan and reevaluate Patient has mild depressed bicarb which is likely due to decreased oral intake. no emesis here, Will dose with IV fluids and place on alcohol withdrawal protocol and have psych team see as patient will not discuss any aspects of his depression with our team and has history of psych . patient cleared from psych team, patient has needed 4mg of ativan and on recheck at 1515 tachycardic at 106, hypertensive and with tremor, will place in observation for monitored alcohol withdrawal care Physician Communication Physician Communication dr lópez agrees to admit Diagnosis Primary Impression: Alcohol withdrawal Qualified Codes: F10.230 - Alcohol dependence with withdrawal, uncomplicated Admitting Information Admitting Physician Requests: Observation Shannon Lindsey MD May 31, 2017 11:05
--- NOTE | 2017-05-31 14:56 | PD ---
History of Present Illness Chief Complaint: Alcohol abuse Time Seen by Provider: 14:00 Travel History International Travel<30 Days: No Contact w/Intl Traveler<30days: No Known affected area: No Legal Status Legal Status: Voluntary History of Present Illness: Patient is a 62-year-old , single, male who is on Social Security disability. He presents to the ED with complaints of skin problems he believes that her due to taking Librium. Patient requested to speak with psychiatry, and initially was refusing to talk to the medical providers. Reviewed EMR, labs , and spoke with medical staff. Patient has a recent history of head injury and has been seen here previously for an acute psychotic episode. Patient states that he developed an issue with the skin on his arm approximately 2 weeks ago and felt it was due to his Librium, so he stopped taking it. Patient reports that he "drank a lot last night" and he is tremulous. He is unkempt and his speech is slow and measured. He maintains eye contact and answers questions appropriately throughout the interview. Patient denies suicidal or homicidal ideations, audiovisual hallucinations, and does not appear to be delusional. Patient states that he was an inpatient at this facility 2 years ago for the aforementioned acute psychosis. He denies having had any problems since then other than his addiction to alcohol and some depression. [facility] Past Medical History Narrative Medical Reviewed EMR and labs. Asthma: No Autoimmune Disease: No Heart Rhythm Problems: Yes (PER PATIENT) Cardiovascular Problems: Yes (Per patient, heart palpitations) Chest Pain: No Congestive Heart Failure: No COPD: No Cerebrovascular Accident: No Diabetes: Yes Patient Takes Glucophage: No Diminished Hearing: No Endocrine: No Genitourinary: No Hypertension: Yes Immune Disorder: No Implanted Vascular Access Dvce: No Kidney Stones: Yes Musculoskeletal: No Neurologic: No Psychiatric: Yes (Inpatient, outpatient, diagnosis, and psychotropic medications) Respiratory: Yes (ASTHMA) Migraines: No Seizures: Yes (Per patient, due to psych medication Olayinkadol (1985) 1 time) Sickle Cell Disease: No Sleep Apnea: No Thyroid Disease: No Ulcer: No Past Surgical History Abdominal Surgery: No AICD: No Arteriovenous Shunt: No Cardiac Surgery: No Ear Surgery: No Endocrine Surgery: No Eye Surgery: No Genitourinary Surgery: No Gynecologic Surgery: No Insulin Pump: No Joint Replacement: No Neurologic Surgery: No Oral Surgery: No Pacemaker: No Thoracic Surgery: No Other Surgery: Yes (lympomas removed RIGHT SHOULDER) Psychiatric History Psychiatric History Mr. Ariza has had several inpatient admissions in the past. He reports most of them have been in [place]. He states that his last inpatient admission was at this facility approximately 2 years ago for an episode of acute psychosis. He does not follow up outpatient with anyone. He reports receiving a prescription for Librium from "a doctor in [place]". Hx Psychiatric Treatment: Psychiatric history, per patient, includes inpatient treatment in a hospital in [facility] 5+ times due to "no sleep," and 1 time in [place], [place]; outpatient treatment where patient saw a psychiatrist for 90 days and last time he saw a psychiatrist was 20+ years ago; diagnosis but unable to tell this clinician; and psychotropic medications including Prolixin and Amitriptyline where patient states it did not work. History of Inpatient Treatment: Yes Guns or firearms in home: No Social History Hx Alcohol Use: Yes (4-8 BEERS/DAY) Hx Tobacco Use: No Hx Substance Use: Yes Substance Use Type: Alcohol, Other Other Substances Used: SLEEPING PILLS 1-2 DAYS Hx of Substance Use Treatment: No Family Psychiatric History Patient advises "1 of my sisters has mental illness problems". Denies any family members committing suicide. Allergies-Medications (Allergen,Severity, Reaction): Coded Allergies: haloperidol (Unverified Adverse Reaction, Severe, Swelling, 05/31/17) swelling of the tongue as reported by patient and un-wittnessed. Reported Meds & Prescriptions Reported Meds & Active Scripts Active Chlordiazepoxide HCl 25 Mg Capsule 25 Mg PO BID Narrative Medication Patient advises that he stopped taking his Librium approximately 2 weeks ago due to his belief that it was causing a skin rash on his arms. He furthermore states that he drank heavily last night and so took one Librium this morning. Review of Systems Integumentary: COMPLAINS OF: Rash (Right arm believes it is due to librium) Mental Status Examination Appearance: Disheveled Consciousness: Alert Orientation: x4 Motor Activity: Other (Patient sitting on bed) Speech: Slow (History of alcoholism and recent head injury) Language: Adequate Fund of Knowledge: Adequate Attention and Concentration: Adequate Memory: Unremarkable Mood: Appropriate Affect: Appropriate Thought Process & Associations: Intact Thought Content: Appropriate Hallucination Type: None Delusion Type: None Suicidal Ideation: No Suicidal Plan: No Suicidal Intention: No Homicidal Ideation: No Homicidal Plan: No Homicidal Intention: No Insight: Adequate Judgment: Adequate Mental Status Exam Remarks Patient denies SI, HI, audiovisual hallucinations, and does not present as delusional. Patient does admit to excessive alcohol use and expresses a desire to stop. He is being provided with [facility] outpatient detox information as a resource, and he expresses comfort with following up outpatient. Advised patient should he develop thoughts of harming self that he should return to the ER. MDM Medical Decision Making Medical Record Reviewed: Yes Assessment/Plan Follow-up with [facility] outpatient detox. Information provided to patient. Request HC Surrog/Guard Advoc?: No Orders Orders Complete Blood Count With Diff (05/31/17 09:05) Comprehensive Metabolic Panel (05/31/17 09:05) Iv Access Insert/Monitor (05/31/17 09:05) Drug Screen, Random Urine (05/31/17 09:05) Alcohol (Ethanol) (05/31/17 09:05) Sodium Chlor 0.9% 1000 Ml Inj (Ns 1000 M (05/31/17 09:30) Lorazepam (Ativan) (05/31/17 10:15) Psych Screen (05/31/17 10:14) Alcohol Withdrawal Asmt-Ciwa ONCE (05/31/17 10:31) Flumazenil Inj (Romazicon Inj) (05/31/17 10:45) Lorazepam (Ativan) (05/31/17 10:45) Lorazepam Inj (Ativan Inj) (05/31/17 10:45) Lorazepam (Ativan) (05/31/17 10:45) Lorazepam Inj (Ativan Inj) (05/31/17 10:45) Lorazepam Inj (Ativan Inj) (05/31/17 10:45) Lorazepam Inj (Ativan Inj) (05/31/17 10:45) Results Vital Signs Date Time Temp Pulse Resp B/P (MAP) Pulse Ox O2 Delivery O2 Flow Rate FiO2 05/31/17 14:08 85 18 140/80 (100) 96 05/31/17 08:42 98.4 92 20 142/90 (107) 96 Room Air Laboratory Tests Test 05/31/17 09:09 05/31/17 09:43 White Blood Count 4.2 Red Blood Count 4.66 Hemoglobin 15.5 Hematocrit 44.2 Mean Corpuscular Volume 94.9 Mean Corpuscular Hemoglobin 33.4 Mean Corpuscular Hemoglobin Concent 35.1 Red Cell Distribution Width 13.8 Platelet Count 128 Mean Platelet Volume 8.5 Neutrophils (%) (Auto) 71.5 Lymphocytes (%) (Auto) 17.5 Monocytes (%) (Auto) 10.2 Eosinophils (%) (Auto) 0.1 Basophils (%) (Auto) 0.7 Neutrophils # (Auto) 3.0 Lymphocytes # (Auto) 0.7 Monocytes # (Auto) 0.4 Eosinophils # (Auto) 0.0 Basophils # (Auto) 0.0 CBC Comment DIFF FINAL Differential Comment Blood Urea Nitrogen 11 Creatinine 0.87 Random Glucose 274 Total Protein 7.8 Albumin 4.4 Calcium Level 9.1 Alkaline Phosphatase 105 Aspartate Amino Transf (AST/SGOT) 100 Alanine Aminotransferase (ALT/SGPT) 74 Total Bilirubin 1.6 Sodium Level 133 Potassium Level 3.7 Chloride Level 97 Carbon Dioxide Level 18.8 Anion Gap 17 Estimat Glomerular Filtration Rate 89 Ethyl Alcohol Level 19 Urine Opiates Screen NEG Urine Barbiturates Screen NEG Urine Amphetamines Screen NEG Urine Benzodiazepines Screen POS Urine Cocaine Screen NEG Urine Cannabinoids Screen NEG Diagnosis Primary Impression: Alcohol withdrawal Psychiatrically Cleared: Yes Arelis Valdez May 31, 2017 14:56
[2017-05-31] MEDS ORDERED: NALOXONE HCL 0.4 MG/ML AMP IV PUSH PRN (16:00)
[2017-05-31] MEDS ORDERED: SODIUM CHLORIDE 0.9% FLUSH 10 ML FLUSH IV FLUSH PRN (16:00)
[2017-05-31] MEDS ORDERED: THIAMINE HCL 100 MG TAB PO ONE (17:15)
[2017-05-31] MEDS ORDERED: GLUCAGON 1 MG/ML VIAL OTHER PRN (17:45)
[2017-05-31] MEDS ORDERED: DEXTROSE 50% IN WATER 50 ML VIAL(D50) IV PUSH PRN (17:45)
--- NOTE | 2017-05-31 17:51 | HHI.HP ---
HPI Service [facility] Primary Care Physician Unknown Admission Diagnosis alcohol withdrawal Diagnoses: Travel History International Travel<30 Days: No Contact w/Intl Traveler <30 Da: No Traveled to Known Affected Are: No History of Present Illness stated he called 911 today at 530 am he had reaction to medicine, pointing to skin scabs on his right UE stated he was taking this med only one every few days - was prescribed more than a month ago when he was here- did not pick it up till this month stated he was shaking terrible, trying to keep himself from falling over usually drinks etoh but stated he goes on and off yesterday, he was mostly laying bed poor historian stated he walked to store and took beer at 700a.m. lots of sweats and colds nauseaus' no diarrhea Review of Systems Except as stated in HPI: all other systems reviewed are Neg Past Family Social History Past Medical History htn- stated not taking meds dm- stated he is not taking meds afib left partietal SAH 04/[address] abdomen and pelvis with enlarged prostate protruding into the base of the bladder versus less likely mass. Outpatient urology follow-up Past Surgical History lipomas x 2 Allergies: Coded Allergies: haloperidol (Unverified Adverse Reaction, Severe, Swelling, 05/31/17) swelling of the tongue as reported by patient and un-wittnessed. Family History mother- dm Social History quit smoking over 20yrs ago drink etoh on and off heavily no drugs Physical Exam Vital Signs Vital Signs Date Time Temp Pulse Resp B/P (MAP) Pulse Ox O2 Delivery O2 Flow Rate FiO2 05/31/17 17:39 05/31/17 17:26 98.4 78 19 168/80 (109) 95 05/31/17 15:57 98.7 86 18 140/84 (102) 97 Room Air 05/31/17 14:08 85 18 140/80 (100) 96 05/31/17 14:00 80 18 160/107 (124) 97 Room Air 05/31/17 08:42 98.4 92 20 142/90 (107) 96 Room Air Physical Exam GENERAL: This is a well-nourished, well-developed patient, in no apparent distress. SKIN: No rashes, ecchymoses or lesions. Cool and dry. HEAD: Atraumatic. Normocephalic. No temporal or scalp tenderness. EYES: No scleral icterus. No injection or drainage. ENT: Nose without bleeding, purulent drainage or septal hematoma. . Airway patent. NECK: Trachea midline. No JVD . Supple, nontender, no meningeal signs. CARDIOVASCULAR: Regular rate and rhythm without murmurs, gallops, or rubs. RESPIRATORY: Clear to auscultation. Breath sounds equal bilaterally. No wheezes , rales, or rhonchi. GASTROINTESTINAL: Abdomen soft, non-tender, nondistended. No guarding. MUSCULOSKELETAL: Extremities without clubbing, cyanosis, or edema. No calf tenderness. NEUROLOGICAL: Awake and alert. Motor and sensory grossly within normal limits. Normal speech. Laboratory Laboratory Tests Test 05/31/17 09:09 05/31/17 09:43 White Blood Count 4.2 Red Blood Count 4.66 Hemoglobin 15.5 Hematocrit 44.2 Mean Corpuscular Volume 94.9 Mean Corpuscular Hemoglobin 33.4 Mean Corpuscular Hemoglobin Concent 35.1 Red Cell Distribution Width 13.8 Platelet Count 128 Mean Platelet Volume 8.5 Neutrophils (%) (Auto) 71.5 Lymphocytes (%) (Auto) 17.5 Monocytes (%) (Auto) 10.2 Eosinophils (%) (Auto) 0.1 Basophils (%) (Auto) 0.7 Neutrophils # (Auto) 3.0 Lymphocytes # (Auto) 0.7 Monocytes # (Auto) 0.4 Eosinophils # (Auto) 0.0 Basophils # (Auto) 0.0 CBC Comment DIFF FINAL Differential Comment Blood Urea Nitrogen 11 Creatinine 0.87 Random Glucose 274 Total Protein 7.8 Albumin 4.4 Calcium Level 9.1 Alkaline Phosphatase 105 Aspartate Amino Transf (AST/SGOT) 100 Alanine Aminotransferase (ALT/SGPT) 74 Total Bilirubin 1.6 Sodium Level 133 Potassium Level 3.7 Chloride Level 97 Carbon Dioxide Level 18.8 Anion Gap 17 Estimat Glomerular Filtration Rate 89 Ethyl Alcohol Level 19 Urine Opiates Screen NEG Urine Barbiturates Screen NEG Urine Amphetamines Screen NEG Urine Benzodiazepines Screen POS Urine Cocaine Screen NEG Urine Cannabinoids Screen NEG Result Diagram: 2/90805/31/17908 Caprini VTE Risk Assessment Caprini VTE Risk Assessment: Mod/High Risk (score >= 2) Caprini Risk Assessment Model Point Value = 1 Point Value = 2 Point Value = 3 Point Value = 5 Age 41-60 Minor surgery BMI > 25 kg/m2 Swollen legs Varicose veins or History of unexplained or recurrent spontaneous Oral contraceptives or hormone replacement Sepsis (< 1 month) Serious lung disease, including pneumonia (< 1 month) Abnormal pulmonary function Acute myocardial infarction Congestive heart failure (< 1 month) History of inflammatory bowel disease Medical patient at bed rest Age 61-74 Arthroscopic surgery Major open surgery (> 45 min) Laparoscopic surgery (> 45 min) Malignancy Confined to bed (> 72 hours) Immobilizing plaster cast Central venous access Age >= 75 History of VTE Family history of VTE Factor V Leiden Prothrombin 32301A Lupus anticoagulant Anticardiolipin antibodies Elevated serum homocysteine Heparin-induced thrombocytopenia Other congenital or acquired thrombophilia Stroke (< 1 month) Elective arthroplasty Hip, pelvis, or leg fracture Acute spinal cord injury (< 1 month) Prophylaxis Regimen Total Risk Factor Score Risk Level Prophylaxis Regimen 0-1 Low Early ambulation 2 Moderate Order ONE of the following: *Sequential Compression Device (SCD) *Heparin 5000 units SQ BID 3-4 Higher Order ONE of the following medications: *Heparin 5000 units SQ TID *Enoxaparin/Lovenox 40 mg SQ daily (WT < 150 kg, CrCl > 30 mL/min) *Enoxaparin/Lovenox 30 mg SQ daily (WT < 150 kg, CrCl > 10-29 mL/min) *Enoxaparin/Lovenox 30 mg SQ BID (WT < 150 kg, CrCl > 30 mL/min) AND/OR *Sequential Compression Device (SCD) 5 or more Highest Order ONE of the following medications: *Heparin 5000 units SQ TID (Preferred with Epidurals) *Enoxaparin/Lovenox 40 mg SQ daily (WT < 150 kg, CrCl > 30 mL/min) *Enoxaparin/Lovenox 30 mg SQ daily (WT < 150 kg, CrCl > 10-29 mL/min) *Enoxaparin/Lovenox 30 mg SQ BID (WT < 150 kg, CrCl > 30 mL/min) AND *Sequential Compression Device (SCD) Assessment and Plan Assessment and Plan Impression: etoh withdrawal htn - not taking meds dm- stated he is not taking meds afib left partietal SAH 04/[address] abdomen and pelvis with enlarged prostate protruding into the base of the bladder versus less likely mass. Outpatient urology follow-up Plan: Watch for withdrawal. Patient is explained that his symptoms are not because off Librium or vitamins. He is explained that these are not allergic reactions. Rather, he is going into alcohol withdrawal since he stopped drinking a few days ago and has intermittent binge drinking episodes. Start CIWA protocol with Ativan. Also would start scheduled doses of Librium 25 mg 3 times a day. Thiamine. HbA1c. Patient was discharged on metformin according to our medical records. However he was never started on metformin while in hospital. Currently he is refusing insulin coverage. We'll await on HbA1c and decide on whether to start him on oral hypoglycemics. Also start patient on blood pressure medications only if he has evidence. Currently, his blood pressure is borderline and likely secondary to withdrawal. We'll continue to monitor. Telemetry monitoring. Nebulizers when necessary. DVT prophylaxis with SCD GI prophylaxis with pantoprazole Discussed Condition With patient, ER , nursing staff Sarah Yang MD May 31, 2017 17:51
[2017-05-31] MEDS: chlordiazePOXIDE 25 MG CAP PO SCH (18:59)
[2017-05-31] MEDS: INSULIN ASPART SUPPLEMENTAL SCALE SQ SCH (21:57)
[2017-05-31] MEDS: SODIUM CHLORIDE 0.9% FLUSH 10 ML FLUSH IV FLUSH SCH (21:58)
[2017-06-01] VITALS (13 sets, daily range): BP systolic 130–158; BP diastolic 85–93; PULSE 61–102; RESP 13–20; TEMP 97.4–98.4; O2SAT 88–98
[2017-06-01 07:27] LABS: AUTOMATED NEUTROPHIL # 1.6 TH/MM3 (1.8-7.7); BASOPHIL % 0.5 % (0.0-2.0); EOSINOPHIL # 0.1 TH/MM3 (0-0.4); EOSINOPHIL % 2.1 % (0.0-4.0); HEMATOCRIT 43.6 % (39.0-51.0); HEMOGLOBIN 15.2 GM/DL (13.0-17.0); LYMPH % 32.8 % (9.0-44.0); MEAN CELL VOLUME 95.2 FL (80.0-100.0); MEAN CORPUSCULAR HEMOGLOBIN 33.3 PG (27.0-34.0); MEAN PLATELET VOLUME 8.4 FL (7.0-11.0); MONO % 14.2 % (0.0-8.0); MONOCYTE # 0.4 TH/MM3 (0-0.9); NEUT % 50.4 % (16.0-70.0); PLATELET COUNT 97 TH/MM3 (150-450); RED BLOOD COUNT 4.59 MIL/MM3 (4.50-5.90); RED CELL DISTRIBUTION WIDTH 13.9 % (11.6-17.2); WHITE BLOOD COUNT 3.1 TH/MM3 (4.0-11.0)
[2017-06-01 07:42] LABS: BICARBONATE 26.5 MEQ/L (21.0-32.0); CALCIUM 8.6 MG/DL (8.5-10.1); CREATININE 0.61 MG/DL (0.60-1.30)
[2017-06-01] MEDS: SODIUM CHLORIDE 0.9% FLUSH 10 ML FLUSH IV FLUSH SCH ×2 (08:02→21:34)
[2017-06-01] MEDS: INSULIN ASPART SUPPLEMENTAL SCALE SQ SCH ×4 (08:02→21:34)
[2017-06-01] MEDS: chlordiazePOXIDE 25 MG CAP PO SCH ×3 (08:02→17:39)
[2017-06-01] MEDS: THIAMINE HCL 100 MG TAB PO SCH (08:02)
[2017-06-01 08:20] LABS: BANDS 4 % (0-6); BASOPHILS 2 % (0-2); MONOCYTES 11 % (0-8); NEUTROPHIL # MANUAL DIFF 1.7 TH/MM3 (1.8-7.7); POLYS (SEG NEUTROPHILS) 50 % (16-70)
[2017-06-01 08:21] LABS: LYMPHOCYTES 30 % (9-44)
--- NOTE | 2017-06-01 09:43 | HHI.PR ---
Subjective Remarks Follow up alcohol withdrawal. Patient states that his withdrawal symptoms are improving, but he still feels very dizzy when he stands. No other complaints at this time. Objective Vitals Vital Signs Date Time Temp Pulse Resp B/P (MAP) Pulse Ox O2 Delivery O2 Flow Rate FiO2 06/01/17 07:42 98.0 81 18 145/86 (105) 97 06/01/17 05:37 97.4 68 13 144/85 (104) 98 06/01/17 04:14 63 06/01/17 00:30 61 06/01/17 00:00 98.2 74 19 130/87 (101) 96 05/31/17 21:51 74 05/31/17 21:02 98.5 82 16 123/73 (90) 98 05/31/17 17:39 05/31/17 17:26 98.4 78 19 168/80 (109) 95 05/31/17 15:57 98.7 86 18 140/84 (102) 97 Room Air 05/31/17 14:08 85 18 140/80 (100) 96 05/31/17 14:00 80 18 160/107 (124) 97 Room Air Result Diagram: 06/01/17 0606 06/01/17 0606 Objective Remarks General: No acute distress. Mildly tremulous. Heart: Regular rate and rhythm. No murmur. Lungs: Clear to auscultation bilaterally. No wheezes, rales, or rhonchi. Breathing is nonlabored. Abdomen: Soft, nontender, nondistended. Extremities: No lower extremity edema. Psych: Alert and oriented. Procedures None Urinary Catheter: No Vascular Central Line Catheter: No A/P Assessment and Plan 1. Alcohol withdrawal: Improving. Continue Librium, CIWA protocol. Patient's CIWA score remains 4 this morning. Continue thiamine, folate, multivitamin. 2. Hypertension: Not on medications. 3. Diabetes mellitus: Not on medications. Diabetic diet. Monitor Accu-Cheks and cover with sliding scale insulin. The patient has been refusing insulin coverage. Hemoglobin A1c pending. 4. Enlarged prostate noted on CT: Follow-up as outpatient with urology. 5. DVT prophylaxis: SCDs, LORRAINE esquivel. Avoid chemical prophylaxis secondary to recent subarachnoid hemorrhage. David Blankenship MD Jun 01, 2017 09:43
[2017-06-01] MEDS: FOLIC ACID 1 MG TAB PO SCH (10:49)
[2017-06-01] MEDS: MULTIVITAMIN TAB PO SCH (10:49)
[2017-06-01] MEDS: glipiZIDE 5 MG TAB PO SCH (12:13)
[2017-06-01 12:57] LABS: HEMOGLOBIN A1C 10.6 % (4.3-6.0)
[2017-06-02 00:29] VITALS: PULSE 62
[2017-06-02 03:34] VITALS: BP 133/83; PULSE 64; RESP 16; TEMP 98.2; O2SAT 95
[2017-06-02 04:43] VITALS: PULSE 62
[2017-06-02 07:34] VITALS: BP 141/76; PULSE 70; RESP 21; TEMP 98; O2SAT 98
[2017-06-02] MEDS: THIAMINE HCL 100 MG TAB PO SCH (08:01)
[2017-06-02] MEDS: glipiZIDE 5 MG TAB PO SCH (08:01)
[2017-06-02] MEDS: MULTIVITAMIN TAB PO SCH (08:01)
[2017-06-02] MEDS: FOLIC ACID 1 MG TAB PO SCH (08:01)
[2017-06-02] MEDS: SODIUM CHLORIDE 0.9% FLUSH 10 ML FLUSH IV FLUSH SCH (08:01)
[2017-06-02] MEDS: chlordiazePOXIDE 25 MG CAP PO SCH (08:01)
[2017-06-02] MEDS: INSULIN ASPART SUPPLEMENTAL SCALE SQ SCH (08:03)
[2017-06-02] MEDS ORDERED: LANCETS1 MI1 (08:56)
[2017-06-02] MEDS ORDERED: GLIP5 PO (08:56)
[2017-06-02] MEDS ORDERED: GLUCKIT15 (08:56)
[2017-06-02] MEDS ORDERED: CHLO25CA9 PO (08:56)
--- NOTE | 2017-06-02 08:57 | HHI.DCPOC ---
Discharge Care Plan Diagnosis: (1) Alcohol withdrawal (2) Diabetes mellitus Goals to Promote Your Health * To prevent worsening of your condition and complications * To maintain your health at the optimal level Directions to Meet Your Goals Take your medications as prescribed Follow your dietary instruction Follow activity as directed Keep your appointments as scheduled Take your immunizations and boosters as scheduled If your symptoms worsen call your PCP, if no PCP go to Urgent Care Center or Emergency Room Smoking is Dangerous to Your Health. Avoid second hand smoke Call the 24-hour hour crisis hotline for domestic abuse at David Blankenship MD Jun 02, 2017 08:57
[2017-06-02] MEDS ORDERED: THERTAB15 PO (09:03)
[2017-06-02] MEDS ORDERED: FOLI1TAB6 PO (09:03)
[2017-06-02] MEDS ORDERED: THIA100 PO (09:03)
--- NOTE | 2017-06-02 09:04 | HHI.PR ---
Subjective Remarks Follow up alcohol withdrawal, diabetes. Patient states that he feels much better. Still has intermittent dizziness, worse with movement of his eyes, but states that the dizziness has improved "a lot". Objective Vitals Vital Signs Date Time Temp Pulse Resp B/P (MAP) Pulse Ox O2 Delivery O2 Flow Rate FiO2 06/02/17 07:34 98.0 70 21 141/76 (97) 98 06/02/17 04:43 62 06/02/17 03:34 98.2 64 16 133/83 (100) 95 06/02/17 00:29 62 06/01/17 23:11 98.1 64 20 145/87 (106) 95 06/01/17 20:05 98.4 72 16 134/87 (103) 88 06/01/17 20:03 68 06/01/17 16:10 98.2 102 18 151/93 (112) 95 06/01/17 15:16 89 06/01/17 12:07 81 06/01/17 11:11 98.0 90 18 158/90 (112) 96 I/O 06/01/17 06/01/17 06/01/17 06/02/17 06/02/17 06/02/17 07:00 15:00 23:00 07:00 15:00 23:00 Output Total 800 ml 1000 ml Balance -800 ml -1000 ml Output Urine Total 800 ml 1000 ml # Voids 1 2 1 Result Diagram: 06/01/17 0606/01/17 0606 Objective Remarks General: No acute distress. Heart: Regular rate and rhythm. No murmur. Lungs: Clear to auscultation bilaterally. No wheezes, rales, or rhonchi. Breathing is nonlabored. Abdomen: Soft, nontender, nondistended. Extremities: No lower extremity edema. Psych: Alert and oriented. Procedures None Urinary Catheter: No Vascular Central Line Catheter: No A/P Assessment and Plan 1. Alcohol withdrawal: Improving. Continue Librium, CIWA protocol. Patient's CIWA score improved. Continue thiamine, folate, multivitamin. 2. Hypertension: Not on medications. 3. Diabetes mellitus: Not on medications. Diabetic diet. Monitor Accu-Cheks and cover with sliding scale insulin. The patient has been refusing insulin coverage. Started on Glipizide. Hemoglobin A1c is 10.6. Follow up with PCP as outpatient. 4. Enlarged prostate noted on CT: Follow-up as outpatient with urology. 5. DVT prophylaxis: SCDs, LORRAINE esquivel. Avoid chemical prophylaxis secondary to recent subarachnoid hemorrhage. Discharge Planning Discharge home in stable condition. Follow up with PCP for management of diabetes. Counselled extensively regarding alcohol abstinence. Follow up with Urology for evaluation of enlarged prostate noted on imaging. Diabetic diet. Activity as tolerated. David Blankenship MD Jun 02, 2017 09:04
== END 2017-06-02 11:28 | disposition home or self-care (01) ==
LOC: NEPE 08:26 → NEDA 15:56 → NEPFCDU 17:24
PROVIDERS: ADMIT Family Medicine; ATTEND Family Medicine
DX: F10.230 Alcohol dependence with withdrawal, uncomplicated (principal); I10 Essential (primary) hypertension; E11.9 Type 2 diabetes mellitus without complications; I48.91 Unspecified atrial fibrillation; J45.909 Unspecified asthma, uncomplicated; N40.0 Benign prostatic hyperplasia without lower urinary tract symptoms; Z87.891 Personal history of nicotine dependence
CPT/HCPCS: 80048; 80053; 80307; 82948; 83036; 85007; 85025; 85027; 96360; 97162; 99285; G0378; G8987; G8988; J7030